=== PATIENT | male | born 1980 | race Two or more races ===

== ENCOUNTER 2024-12-17 10:00 | Inpatient (IN) | payer MEDICAID, SELFPAY ==
[2024-12-17] VITALS (15 sets, daily range): BP systolic 131–169; BP diastolic 75–107; PULSE 99–115; RESP 17–94; TEMP 36.8–37.2; O2SAT 91–99; BMI 33.8; BMI 40.7
--- NOTE | 2024-12-17 | XR_ITS ---
MRI abdomen, without contrast. MRCP Date and time of exam: December 17, 2024 7057 hours Indications: Elevated total bilirubin on laboratory examination today, ultrasound examination today, gallstones gallbladder wall thickening Technique: Multiple axial and coronal images of the abdomen have been obtained with the Siemens 1.5T MRI scanner. Images obtained included T1 weighted transverse images, T2-weighted transverse images, T2-weighted transverse images fat-suppressed, T2 weighted haste fat suppressed transverse images, T1 weighted images, in and out of phase images, T2-weighted coronal images, breath hold, T2 weighted haze coronal images as well as T2 weighted coronal thick slab images, MRCP. Findings: Liver is irregular in contour and enlarged Contracted gallbladder with gallstones and marked gallbladder wall edema No common hepatic or common bile duct stones Mild ascites Mild fluid around the pancreas which may relate to the patient's ascites Splenomegaly 19 cm No hydronephrosis Aorta normal size Impression: Cirrhosis Mild ascites Significant splenomegaly Acute calculus cholecystitis Common bile duct, gallstones
--- NOTE | 2024-12-17 10:43 | EKG_ITS ---
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1980 Requested By: Julio César Cardoza Order Number: [id number] Reading MD: Julio César Cardoza Measurements Intervals [place] Rate: 105 P: 63 MT: 185 QRS: -42 QRSD: 120 T: 71 QT: 355 QTc: 469 Interpretive Statements SINUS TACHYCARDIA WITH OCCASIONAL VENTRICULAR PREMATURE COMPLEXES LEFT AXIS DEVIATION [QRS AXIS < -30] LEFT VENTRICULAR HYPERTROPHY AND ST-T CHANGE [VOLTAGE CRITERIA PLUS ST/T ABNORMALITY] POSSIBLE LATERAL MYOCARDIAL INFARCTION , OF INDETERMINATE AGE [30 ms Q WAVE IN I/aVL/V5/V6] Compared to ECG 10/10/2021 21:47:10 Ventricular premature complex(es) now present ST (T wave) deviation now present Myocardial infarct finding now present /store/S0/[id number]/ecg/[id number].pdf
--- NOTE | 2024-12-17 10:44 | PD.EDRME ---
Rapid Medical Screening Exam RME Arrival date/time: 12/17/24 10:00 44-year-old male with no known medical history presents to the emergency room with a chief complaint of bilateral lower extremity swelling, multiple wounds to the area, x 1 week I have greeted and performed a focused initial assessment of this patient. A comprehensive ED assessment and evaluation of the patient, analysis of all test results, and completion of the medical decision making process will be conducted by additional ED providers. Chief Complaint: General Adult/Misc Complain Vital signs: Vital Signs Temperature 99.0 F 12/17/24 10:34 Pulse Rate 115 H 12/17/24 10:34 Respiratory Rate 20 12/17/24 10:34 Blood Pressure 143/86 H 12/17/24 10:34 Pulse Oximetry (%) 97 12/17/24 10:34 Oxygen Delivery Method Room Air 12/17/24 10:34 Vital signs reviewed by provider: Yes
[2024-12-17 11:23] LABS: Lactate (Lactic Acid) 2.5 mMol/L (0.4-2.0)
[2024-12-17 11:36] LABS: Collection Type, Urine Clean Catch
[2024-12-17 11:44] LABS: Basophils # (Auto) 0.1 Thou/mm3 (0.0-0.2); Basophils % (Auto) 1 % (0-2.5); Eosinophils % (Auto) 0 % (0-10); Hematocrit 34.9 % (41.0-53.0); Immature Granulocytes % (Auto) 1 % (0-0); Immature Granulocytes Auto 0.09 Thou/mm3 (0.00-0.00); Lymphocytes # (Auto) 0.7 Thou/mm3 (1.0-4.8); Lymphocytes % (Auto) 11 % (10-50); Mean Corpuscular HGB Conc 37.2 g/dl (31.0-37.0); Mean Corpuscular Volume 94 fL (80-100); Monocytes # (Auto) 0.7 Thou/mm3 (0.0-0.8); Monocytes % (Auto) 10 % (0-12); Neutrophils # (Auto) 5.2 Thou/mm3 (1.8-7.7); Neutrophils % (Auto) 76 % (37-80); Nucleated Red Blood Cell % 0 /100 WBC (0); Platelet Count 111 Thou/mm3 (140-440); RDW Standard Deviation 53.5 fL (35.1-43.9); Red Blood Count 3.71 Miln/mm3 (4.50-5.90); White Blood Count 6.8 Thou/mm3 (3.8-10.6)
[2024-12-17 11:51] LABS: Amphetamine/Methamp Scrn,U Negative (Negative); Barbiturate Screen,Urine Negative (Negative); Benzodiazepines Screen,Urine Negative (Negative); Benzoylecgonine Screen, Ur Negative (Negative); Fentanyl Screen,Urine Negative (Negative); Opiate Screen,Urine Negative (Negative); THC Screen,Urine Positive (Negative)
[2024-12-17 11:53] LABS: B-Type Natriuretic Peptide 24 pg/mL (0-100)
[2024-12-17 11:56] LABS: Bacteria,Urine Rare; Bilirubin,Urine 4+ (Negative); Blood,Urine Negative (Negative); Color,Urine Drk-Yellow (Lt Yel-Yel); Glucose, Urine Negative (Negative); Hyaline Casts,Urine < 1 /hpf (0-1); Ketones,Urine Negative (Negative); Leukocyte Esterase,Urine Negative (Negative); Nitrite,Urine Negative (Negative); Protein,Urine 1+ (Neg - Trace); RBC,Urine 5 /hpf (0-3); Specific Gravity,Urine 1.023 (1.001-1.035); Squamous Epithelial Cell,Urine 3 /hpf (0-5); WBC,Urine 27 /hpf (0-5)
[2024-12-17 12:05] LABS: Alanine Aminotransferase 86 U/L (10-49); Albumin, Serum 3.2 gm/dL (3.5-5.0); Albumin/Globulin Ratio 0.8 (1.2-2.2); Alkaline Phosphatase 160 U/L (46-116); Anion Gap 10 (7-16); Aspartate Amino Transferase 214 U/L (0-34); BUN/Creatinine Ratio 11 Ratio (12-20); Bilirubin,Total 12.4 mg/dL (0.3-1.2); Blood Urea Nitrogen 9 mg/dL (9-23); C-Reactive Protein 4.4 mg/dL (0.0-0.9); Calcium 7.7 mg/dL (8.3-10.6); Calcium (Corrected) 8.3 mg/dL (8.5-10.1); Carbon Dioxide 28.7 mMol/L (20.0-31.0); Chloride 95 mMol/L (98-107); Creatinine (Component) 0.8 mg/dL (0.6-1.3); Estimated Creatinine Clearance 146.2 mL/min (>60); Globulin 3.8 gm/dL (2.3-3.5); Glucose 117 mg/dL (74-106); Osmolality,Calculated 267 (275-295); Procalcitonin 0.28 ng/ml (0.0-0.49); Sodium 134 mMol/L (136-145); Troponin I 0.026 ng/mL (0.0-0.045); eGFR > 60 See Note
[2024-12-17 12:06] LABS: Potassium 2.4 mMol/L (3.4-5.1)
[2024-12-17 12:07] LABS: INR 1.2 (0.9-1.3); Partial Thromboplastin Time 29.3 Seconds (22.0-36.0); Prothrombin Time 12.8 Seconds (9.0-12.2)
[2024-12-17 12:31] LABS: Clarity,Urine Hazy (Clear/Hazy)
[2024-12-17 12:51] LABS: Sed Rate (ESR) 27 mm/hr (0-15)
--- NOTE | 2024-12-17 13:29 | XR_ITS ---
Examination: Abdomen sonogram, Limited Date and time of exam: December 17, 2024 at 1543 hrs. Indications: Elevated liver function tests on laboratory examination today Technique: Real-time albert scale transabdominal sonographic images of the upper abdomen obtained. Findings: Gallstones, gallbladder sludge Gallbladder wall 0.6 cm with edema Common bile duct 0.5 cm Pancreas obscured by bowel gas Liver 22.2 cm fatty infiltration lobular contour no focal liver lesions Normal hepatopedal portal venous flow Patent IVC Free fluid in the right upper abdomen Impression: Acute calculus cholecystitis Normal common bile duct stones Significant hepatomegaly primary hepatocellular disease fatty infiltration
--- NOTE | 2024-12-17 13:35 | PD.EDADULT ---
ED General RME/HPI General Chief complaint: General Adult/Misc Complain Stated complaint: BENITO LEG PAIN WITH OPEN WOUNDS Time Seen by Provider: 12/17/24 13:18 Arrival date/time: 12/17/24 10:00 RME / HPI RME / HPI narrative: 44-year-old male patient with significant history of hypertension, came in for evaluation regarding bilateral lower leg redness and multiple wounds. Onset of symptoms for the last 5 days as patient noticed redness and swelling bilateral lower extremity with blister formation. Patient leg is getting worst blisters pop and open wound noted. Patient denies any abdominal pain. Patient denies any yellowing of the sclera. Denies any other complaints no fever noted patient is ambulatory. Was seen by PCP and was referred here for further evaluation. Related Data Home Medications ?Medication ?Instructions ?Recorded ?Confirmed No Known Home Medications 10/10/21 10/10/21 Allergies Allergy/AdvReac Type Severity Reaction Status Date / Time No Known Allergies Allergy Verified 12/17/24 10:03 Review of Systems Review of Systems Narrative Review of Systems: Review of system reviewed and within normal limits except mentioned in HPI ED Exam Narrative Physical exam: VITAL SIGNS: Reviewed. GENERAL APPEARANCE: Alert and interactive, follows commands, no acute distress, HEAD AND FACE: Non-traumatic. ENT: PERRL, pink conjunctivitis, eyelid no trauma, Mucous membrane moist. Icteric sclera bilateral NECK: Supple, nontender, no nuchal rigidity. CHEST: No tenderness, no crepitus, no paradoxical movement, no retractions. LUNGS: Clear, well ventilated, symmetric, no rales, no wheezing, no ronchi, no stridor, good breath sounds bilaterally. HEART: Regular rate, regular rhythm, no murmur, no gallops. ABDOMEN: Soft, positive bowel sounds, nondistended, no guarding, nontender, no rebound, no masses, RECTAL: Deferred. GENITAL: Deferred. NEUROLOGICAL: Gross motor function intact sensory function intact, Appropriate for age. MUSCULOSKELETAL: low back nontender, full range of motion. EXTREMITIES: Bilateral lower leg redness, with multiple open wounds anterior leg, swelling, with tenderness full range of motion. SKIN: Color jaundice, dry, no lacerations, no abrasions, no contusions. LYMPHATICS: Deferred. Course Quality Measures none Orders Category Date Time Status Admit to Inpatient Status Routine Admission 12/17/24 20:35 Active Patient Condition Routine Admission 12/17/24 20:35 Ordered COVID-19 Screening Questionnaire NOW Care 12/17/24 19:42 Active Decision to Admit X1 Care 12/17/24 19:42 Completed EKG (ED ONLY) *Do not use* NOW Care 12/17/24 10:43 Completed MRI Screening NOW Care 12/17/24 13:34 Active Notify provider NEEDED Care 12/17/24 20:35 Active Consult to Gastroenterology Stat Cons 12/17/24 19:20 Ordered Consult to General Surgery Stat Cons 12/17/24 19:21 Ordered Diet Regular Diet 12/18/24 Breakfast Active EKG (ED Only) Stat Exams 12/17/24 10:43 Draft MR MRCP Stat Exams 12/17/24 Completed US gall bladder Stat Exams 12/17/24 13:29 Completed US venous doppler LE BI Stat Exams 12/17/24 13:38 Completed XR tibia fibula BI 2V Stat Exams 12/17/24 20:50 Completed B-Type Natriuretic Peptide Stat Lab 12/17/24 11:11 Completed Bilirubin,Direct Stat Lab 12/17/24 13:54 Completed Blood Culture (Lab) Stat Lab 12/17/24 11:11 Received CBC AM DRAW Lab 12/18/24 05:00 Ordered CBC AM DRAW Lab 12/19/24 05:00 Ordered CBC AM DRAW Lab 12/20/24 05:00 Ordered CBC Stat Lab 12/17/24 11:11 Completed CRP [C-Reactive Protein] Stat Lab 12/17/24 11:11 Completed Comprehensive Metabolic Panel AM DRAW Lab 12/18/24 05:00 Ordered Comprehensive Metabolic Panel AM DRAW Lab 12/19/24 05:00 Ordered Comprehensive Metabolic Panel AM DRAW Lab 12/20/24 05:00 Ordered Comprehensive Metabolic Panel Stat Lab 12/17/24 11:11 Completed Drug Screen,Urine Stat Lab 12/17/24 11:29 Completed ESR [Sed Rate (ESR)] Stat Lab 12/17/24 11:11 Completed Hepatitis Acute Panel AM DRAW Lab 12/18/24 05:00 Ordered Hepatitis Acute Panel Stat Lab 12/17/24 13:54 Completed Lactate (Lactic Acid) Stat Lab 12/17/24 11:11 Completed Lactic Acid, 3 HR Stat Lab 12/17/24 17:49 Completed Lipid Panel Urgent Lab 12/17/24 21:36 Completed Magnesium AM DRAW Lab 12/18/24 05:00 Ordered Magnesium AM DRAW Lab 12/19/24 05:00 Ordered Magnesium AM DRAW Lab 12/20/24 05:00 Ordered Magnesium Urgent Lab 12/17/24 21:36 Completed Partial Thromboplastin Time Stat Lab 12/17/24 11:11 Completed Phosphorous AM DRAW Lab 12/18/24 05:00 Ordered Phosphorous AM DRAW Lab 12/19/24 05:00 Ordered Phosphorous AM DRAW Lab 12/20/24 05:00 Ordered Procalcitonin Stat Lab 12/17/24 11:11 Completed Prothrombin Time with INR Stat Lab 12/17/24 11:11 Completed Troponin I Stat Lab 12/17/24 11:11 Completed Urinalysis Stat Lab 12/17/24 11:29 Completed Acetaminophen Tab [Tylenol Tab] Med 12/17/24 20:38 Active 650 mg PO Q6H PRN HYDROmorphone INJ [Dilaudid Inj] Med 12/17/24 14:57 Discontinued 1 mg IVP X1 ONE HYDROmorphone INJ [Dilaudid Inj] Med 12/17/24 19:12 Discontinued 1 mg IVP X1 ONE Heparin Inj Med 12/17/24 21:00 Active 5,000 unit SC Q12HR LORazepam [Ativan Inj] Med 12/17/24 14:08 Discontinued 2 mg IVP X1 ONE Ondansetron Inj [Zofran Inj] Med 12/17/24 20:38 Active 4 mg IV Q6H PRN Piper/Tazo 3.375 gm Premix [Zosyn] Med 12/17/24 22:00 Active 3.375 gm in 50 ml IV Q8HR Piper/Tazo 3.375 gm Premix [Zosyn] Med 12/17/24 13:33 Discontinued 3.375 gm in 50 ml IV X1 Piper/Tazo 3.375 gm Premix [Zosyn] 50 ml Med 12/17/24 20:48 Discontinued IV Q6HR Potassium Chloride [K-Dur] Med 12/17/24 13:32 Discontinued 40 meq PO X1 ONE Potassium Chloride [K-Dur] Med 12/17/24 15:26 Discontinued 40 meq PO X1 ONE Senna [Senokot] Med 12/17/24 20:38 Active 1 tab PO QDAY PRN Vancomycin Pharmacy to Dose Med 12/17/24 21:00 Discontinued 1 each IV QDAY Vancomycin Pharmacy to Dose Med 12/18/24 09:00 Active 1 each IV QDAY PRN Vancomycin/Ns 1 gm Ivpb 200 ml Med 12/17/24 13:33 Discontinued IV X1 Code Status Routine Oth 12/17/24 20:35 Ordered Oxygen Delivery PRN RT 12/17/24 20:35 Active Vital Signs Vital signs: Vital Signs Temperature 99.0 F 12/17/24 10:34 Pulse Rate 115 H 12/17/24 10:34 Respiratory Rate 20 12/17/24 10:34 Blood Pressure 143/86 H 12/17/24 10:34 Pulse Oximetry (%) 97 12/17/24 10:34 Oxygen Delivery Method Room Air 12/17/24 10:34 Discharge Plan Plan Patient Disposition: Admit Acute Care w/in Hospital Problem List Clinical Impression: Bilateral lower leg cellulitis, Transaminitis, Cirrhosis of liver, Acute calculous cholecystitis MDM Patient Acuity Narrative: 44-year-old male patient with significant history of hypertension, came in for evaluation regarding bilateral lower leg redness and multiple wounds. Onset of symptoms for the last 5 days as patient noticed redness and swelling bilateral lower extremity with blister formation. Patient leg is getting worst blisters pop and open wound noted. Patient denies any abdominal pain. Patient denies any yellowing of the sclera. Denies any other complaints no fever noted patient is ambulatory. Was seen by PCP and was referred here for further evaluation. CBC no leukocytosis noted. CMP significant for potassium 2.4 lactic acid 2.3, magnesium 1.1, total bili 12.4, direct bili of 7.5 AST of 214 ALT of 86 alkaline phos 160 C reactive protein 4.4 urinalysis no UTI tested positive for marijuana x-ray of the tibia-fibula came back unremarkable. Ultrasound came back unremarkable. MRCP showed acute calculus cholecystitis, no common bile duct stone noted Consulted Dr. Sigala, discussed the case, thank you Dr. Anaya consulted Dr. Monroe, GI specialist on-call discussed the case, thank you Spoke with hospitalist, Dr. Fair who admitted the patient. Medication Administration(s) Medication Administration History Acetaminophen (Acetaminophen 325 Mg Tablet) 650 mg PO Q6H PRN PRN Reason: Fever >100.3 or pain 1-3 Stop: 01/16/25 20:37 Heparin Sodium (Porcine) (Heparin Sod Inj 5000 Unit/Ml Vial) 5,000 unit SC Q12HR [facility] Stop: 12/31/24 20:59 Last Admin: 12/17/24 22:33 Dose: 5,000 unit Documented By: TIM Co-signed By: CHRISTIAN Piperacillin/Tazobactam/Dextrose (Zosyn) 3.375 gm in 50 mls @ 12.5 mls/hr IV Q8HR [facility] Stop: 12/24/24 21:59 Vancomycin HCl 2,000 mg/ (Sodium Chloride) 500 mls @ 150 mls/hr IV Q12H [facility] Stop: 12/24/24 21:59 Lisinopril (Lisinopril 20 Mg Tablet) 20 mg PO QDAY [facility] Stop: 01/17/25 08:59 Lorazepam (Lorazepam 0.5 Mg Tablet) 0.5 mg PO Q4HR PRN PRN Reason: CIWA Score 2-6 Stop: 12/22/24 23:01 Lorazepam (Lorazepam 0.5 Mg Tablet) 1 mg PO Q4HR PRN PRN Reason: CIWA SCORE 7-11 Stop: 12/22/24 23:01 Lorazepam (Lorazepam 0.5 Mg Tablet) 2 mg PO Q4HR PRN PRN Reason: CIWA SCORE 12-15 Stop: 12/22/24 23:01 Ondansetron HCl (Ondansetron Inj 2 Mg/Ml Inj 2 Ml) 4 mg IV Q6H PRN; Protocol PRN Reason: NAUSEA OR VOMITING Stop: 01/16/25 20:37 Pharmacy Consult (Vancomycin Pharmacy To Dose 1 Each Each) 1 each IV QDAY PRN PRN Reason: PROTOCOL Stop: 01/17/25 08:59 Sennosides (Senna Tablet) 1 tab PO QDAY PRN; Protocol PRN Reason: constipation Stop: 01/16/25 20:37 Discontinued Medications Hydromorphone HCl (Hydromorphone Inj 2 Mg/Ml Vial) 1 mg IVP X1 ONE Stop: 12/17/24 14:58 Last Admin: 12/17/24 15:10 Dose: 1 mg Documented By: DAMARIS Hydromorphone HCl (Hydromorphone Inj 2 Mg/Ml Vial) 1 mg IVP X1 ONE Stop: 12/17/24 19:13 Last Admin: 12/17/24 19:26 Dose: 1 mg Documented By: DAMARIS Piperacillin/Tazobactam/Dextrose (Zosyn) 3.375 gm in 50 mls @ 100 mls/hr IV X1 ONE Stop: 12/17/24 14:02 Last Infusion: 12/17/24 15:25 Dose: Infused Documented By: Admin: 12/17/24 14:49 Dose: 100 mls/hr Documented By: DAMARIS Vancomycin/Sodium Chloride (Vancomycin/Ns 1 Gm Ivpb) 200 mls @ 120 mls/hr IV X1 ONE Stop: 12/17/24 15:12 Last Infusion: 12/17/24 19:27 Dose: Infused Documented By: Admin: 12/17/24 16:28 Dose: 120 mls/hr Documented By: DAMARIS Piperacillin/Tazobactam/Dextrose (Zosyn) 50 mls @ 100 mls/hr IV Q6HR [facility] Stop: 12/24/24 20:47 Lorazepam (Lorazepam 2 Mg/Ml Vial) 2 mg IVP X1 ONE Stop: 12/17/24 14:09 Last Admin: 12/17/24 14:54 Dose: Not Given Documented By: DAMARIS Non-Admin Reason: Cancelled by Provider Pharmacy Consult (Vancomycin Pharmacy To Dose 1 Each Each) 1 each IV QDAY [facility] Stop: 01/16/25 20:59 Potassium Chloride (Potassium Chloride 20 Meq Tabcr) 40 meq PO X1 ONE Stop: 12/17/24 13:33 Last Admin: 12/17/24 14:48 Dose: 40 meq Documented By: DAMARIS Potassium Chloride (Potassium Chloride 20 Meq Tabcr) 40 meq PO X1 ONE Stop: 12/17/24 15:27 Last Admin: 12/17/24 18:54 Dose: 40 meq Documented By: DAMARIS Diagnosis Differential Diagnosis ED Complaint MDM: Bilateral lower leg cellulitis, infected bilateral lower leg, liver cirrhos Diagnoses ruled out: Lower leg cellulitis, acute calculus cholecystitis, liver cirrhosis
--- NOTE | 2024-12-17 13:38 | XR_ITS ---
Examination: Venous duplex lower extremity sonogram, bilateral. Date and time of exam: December 17, 2024 1509 hrs. Indications: Bilateral leg swelling redness nonhealing wound 5 days Technique: Multiple sonographic images of the deep venous system have been obtained. B-mode/2-D grayscale imaging of vascular structures and Doppler spectral analysis (waveforms) and color performed Both legs are examined. Findings: Deep venous systems do not demonstrate abnormal echogenicity. All visualized deep veins exhibit compressibility. All visualized deep veins exhibit augmentation. Impression: Negative for deep vein thrombosis
--- NOTE | 2024-12-17 14:06 | PC.NURSE ---
Received verbal order from provider for 2mg Ativan IV for MRI
[2024-12-17 14:16] LABS: Reflex Lactate? Y
[2024-12-17 14:29] LABS: Bilirubin,Direct 7.5 mg/dL (0.0-0.3)
[2024-12-17] MEDS: POTASSIUM CHLORIDE 20 mEq TABCR 40 MEQ PO ×2 (14:48→18:54)
[2024-12-17] MEDS: PIPER/TAZO 3.375 GM PREMIX 3.375 GM/50 ML BAG IV ×2 (14:49→23:53)
[2024-12-17 15:08] LABS: Hepatitis A Antibody IgM Non Reactive (Non React); Hepatitis B Core Antibody IgM Non Reactive (Non React); Hepatitis B Surface Antigen Non Reactive (Non React); Hepatitis C Antibody Non Reactive (Non React)
[2024-12-17] MEDS: HYDROmorphone INJ 2 MG/ML VIAL 1 MG IVP ×2 (15:10→19:26)
[2024-12-17] MEDS: VANCOMYCIN/NS 1 GM IVPB 200 ML IV (16:28)
[2024-12-17 18:07] LABS: Lactic Acid, 3 HR 2.3 mMol/L (0.4-2.0)
--- NOTE | 2024-12-17 20:50 | XR_ITS ---
Examination: Bilateral lower legs 4 views Technique: AP lateral right and left lower legs 4 views Exam date and time: December 17, [id number] hrs. Indications: Soft tissue pain infection swelling both lower legs this week. Findings: Soft tissue vascular calcification posterior right lower leg No fracture or dislocation involving either lower leg No cortical bone destruction Impression: No fracture or cortical bone destruction involving Bilateral bimalleolar soft tissue swelling
--- NOTE | 2024-12-17 21:36 | ESHP_ITS ---
Documentation for date of: 12/17/24 HPI History of Present Illness History of present illness: The patient is a 56-year-old male with a previous medical history of hypertension who came in to the ED on 12/13/2024 due to bilateral lower extremities swelling, erythema, lesions, ruptured bullae that started on Saturday. He denies trauma, he denies new medications, he denies applying lotions on his skin. Of note, his life partner is at the bedside and she has similar healing lesions on her lower extremities. He also reports that he went to his wound care doctor and got an antibiotic prescribed, and he had sample taken for MRSA. He has not started his antibiotics yet. He denies fever, chills, chest pain, shortness of breath, nausea, vomiting. He reports that he has been having diarrhea since Saturday, denies blood in his stool. But his life partner reports that he has been having shortness of breath. He also reports that people has been telling him that he his skin and sclera looks yellowish. He denies history of liver disease. ED course: Blood pressure for 143/86, pulse 115, afebrile, saturating well on room air. Labs remarkable for hemoglobin 13.0, hematocrit 34.9, platelets 111, INR 1.2, sodium 134, potassium 2.4, chloride 95, carbon dioxide 28.7, BUN 9, creatinine 0.8, glucose 117, lactic acid 2.5 down trended to 2.3, calcium corrected 8.3, total bilirubin 12.4, direct bilirubin 7.5, AST 214, ALT 86, alkaline phosphatase 160, C-reactive protein 4.4, albumin 3.2, procalcitonin 0.28. Gallbladder ultrasound showed acute calculus cholecystitis, hepatomegaly and fatty infiltration of the liver. MRCP showed cirrhosis, mild ascites, significant splenomegaly and acute calculus cholecystitis. Impression section in the report writes common bile duct, gallstones , but section findings describes no common hepatic or common bile duct stones. According to the ED provider, he contacted radiologist and he confirmed that there is no common hepatic and common bile duct stones. Venous Doppler of the lower extremities was negative for DVT. Tibia and fibula x-ray showed bilateral bimalleolar soft tissue swelling, no cortical bone destruction. EKG showed sinus tachycardia with occasional PVCs. Social history: Denies smoking, reports alcohol use 3?4 times a week, approximately drinks 1?2 beers a day. Denies recreational substances. Has multiple tattoos, says that not every tattoo done at the [facility]. In the ED he received 80 mEq of potassium, Zosyn 3.375 x 1, lorazepam 2 mg x 1, hydromorphone 1 mg x 2, vancomycin x 1. Home medications: Reports taking blood pressure medications, official med rec is pending. Allergies: Denies Surgeries: Denies Patient is going to be admitted for bilateral cellulitis and liver cirrhosis treatment and management. Review of Systems Review of Systems Systems Reviewed: All systems reviewed, normal except as documented Past Medical History Past Medical History CARDIAC: Positive Cardiac Disorders and Hypertension; Negative Congestive Heart Failure RESPIRATORY: Negative Chronic Obstructive Pulmonary Disease (COPD) GASTROINTESTINAL: Positive Obesity GENITOURINARY: Negative Renal Disease ENDOCRINE: Negative Diabetes Mellitus Type 1 or Diabetes Mellitus Type 2 Social History SMOKING STATUS: Never smoker SUBSTANCE USE: former substance user (marijuana when younger) Exam Vital Signs Temp Pulse Resp BP Pulse Ox O2 Del Method 98.5 F 108 H 18 162/100 H 95 Room Air 12/17/24 18:57 12/17/24 21:31 12/17/24 21:31 12/17/24 18:57 12/17/24 18:57 12/17/24 18:57 Narrative Exam Physical Exam General: Awake and in no acute distress obese male. Irritative, does not want to discuss cirrhosis. HEENT: Normocephalic, atraumatic, mucous membranes moist. Mildly icteric sclerae. Heart: Regular rate and rhythm, no murmurs. Lungs: Decreased lung sounds due to habitus. Abdomen: Soft, nondistended, nontender, positive bowel sounds. ?No guarding or rebound tenderness. Neurologic: Alert, no gross neurological deficit, and patient able to move all 4 extremities. Extremities: Bilateral tibial swelling and edema, tender to palpation. Bilateral tibial bursted bullae with scabs on top. Skin: Bilateral tibial bursted bullae with scabs on top. Results: Labs 12/17/24 11:11 12/17/24 11:11 Labs: Short CBC 12/17/24 Range/Units 11:11 WBC 6.8 (3.8-10.6) Thou/mm3 Hgb 13.0 L (13.5-16.0) g/dL Hct 34.9 L (41.0-53.0) % Plt Count 111 L (140-440) Thou/mm3 BMP 12/17/24 11:11 Sodium 134 L Potassium 2.4 L* Chloride 95 L Carbon Dioxide 28.7 BUN 9 Creatinine 0.8 Glucose 117 H Calcium 7.7 L Cardiac Enzymes 12/17/24 Range/Units 11:11 Troponin I 0.026 (0.0-0.045) ng/mL Liver Function 12/17/24 12/17/24 Range/Units 11:11 13:54 Total Bilirubin 12.4 H (0.3-1.2) mg/dL Direct Bilirubin 7.5 H (0.0-0.3) mg/dL AST 214 H (0-34) U/L ALT 86 H (10-49) U/L Alkaline Phosphatase 160 H (46-116) U/L Albumin 3.2 L (3.5-5.0) gm/dL Urine 12/17/24 Range/Units 11:29 Urine Color Drk-Yellow A (Lt Yel-Yel) Urine Clarity Hazy (Clear/Hazy) Urine pH 6.0 (5.0-7.0) Ur Specific [place] 1.023 (1.001-1.035) Urine Protein 1+ A (Neg - Trace) Urine Glucose (UA) Negative (Negative) Quality Measures Quality Measures VTE prophylaxis Medications Home Medications and Allergies Home Medications ?Medication ?Instructions ?Recorded ?Confirmed ?Type No Known Home Medications 10/10/2109/26 History Allergies Allergy/AdvReac Type Severity Reaction Status Date / Time No Known Allergies Allergy Verified 12/17/24 10:03 Visit Medications Acetaminophen (Acetaminophen 325 Mg Tablet) 650 mg PO Q6H PRN PRN Reason: Fever >100.3 or pain 1-3 Stop: 01/16/25 20:37 Heparin Sodium (Porcine) (Heparin Sod Inj 5000 Unit/Ml Vial) 5,000 unit SC Q12HR BOYD Stop: 12/31/24 20:59 Piperacillin/Tazobactam/Dextrose (Zosyn) 3.375 gm in 50 mls @ 12.5 mls/hr IV Q8HR BOYD Stop: 12/24/24 21:59 Vancomycin HCl 2,000 mg/ (Sodium Chloride) 500 mls @ 150 mls/hr IV Q12H BOYD Stop: 12/24/24 21:59 Ondansetron HCl (Ondansetron Inj 2 Mg/Ml Inj 2 Ml) 4 mg IV Q6H PRN; Protocol PRN Reason: NAUSEA OR VOMITING Stop: 01/16/25 20:37 Pharmacy Consult (Vancomycin Pharmacy To Dose 1 Each Each) 1 each IV QDAY PRN PRN Reason: PROTOCOL Stop: 01/17/25 08:59 Sennosides (Senna Tablet) 1 tab PO QDAY PRN; Protocol PRN Reason: constipation Stop: 01/16/25 20:37 Discontinued Medications Hydromorphone HCl (Hydromorphone Inj 2 Mg/Ml Vial) 1 mg IVP X1 ONE Stop: 12/17/24 14:58 Last Admin: 12/17/24 15:10 Dose: 1 mg Hydromorphone HCl (Hydromorphone Inj 2 Mg/Ml Vial) 1 mg IVP X1 ONE Stop: 12/17/24 19:13 Last Admin: 12/17/24 19:26 Dose: 1 mg Piperacillin/Tazobactam/Dextrose (Zosyn) 3.375 gm in 50 mls @ 100 mls/hr IV X1 ONE Stop: 12/17/24 14:02 Last Infusion: 12/17/24 15:25 Dose: Infused Vancomycin/Sodium Chloride (Vancomycin/Ns 1 Gm Ivpb) 200 mls @ 120 mls/hr IV X1 ONE Stop: 12/17/24 15:12 Last Infusion: 12/17/24 19:27 Dose: Infused Piperacillin/Tazobactam/Dextrose (Zosyn) 50 mls @ 100 mls/hr IV Q6HR [facility] Stop: 12/24/24 20:47 Lorazepam (Lorazepam 2 Mg/Ml Vial) 2 mg IVP X1 ONE Stop: 12/17/24 14:09 Last Admin: 12/17/24 14:54 Dose: Not Given Pharmacy Consult (Vancomycin Pharmacy To Dose 1 Each Each) 1 each IV QDAY BOYD Stop: 01/16/25 20:59 Potassium Chloride (Potassium Chloride 20 Meq Tabcr) 40 meq PO X1 ONE Stop: 12/17/24 13:33 Last Admin: 12/17/24 14:48 Dose: 40 meq Potassium Chloride (Potassium Chloride 20 Meq Tabcr) 40 meq PO X1 ONE Stop: 12/17/24 15:27 Last Admin: 12/17/24 18:54 Dose: 40 meq Assessment & Plan Plan The patient is a 56-year-old male with a previous medical history of hypertension who came in to the ED on 12/13/2024 due to bilateral lower extremities swelling, erythema, lesions, ruptured bullae that started on Saturday. Patient is going to be admitted for bilateral cellulitis and liver cirrhosis treatment and management. #Bilateral cellulitis Patient started to have bullous eruption on Saturday, reports the bruise has burst. Extremities bilaterally edematous, erythematous, hot to the touch. SIRS 1/4. qSOFA 0. Plan: - Vancomycin renally dosed qday - Zosyn 3.375 mg qday - Wound care - MRSA screen - follow-up blood cultures #Liver cirrhosis #Elevated transaminases Patient denies history of cirrhosis previously. Most likely cirrhosis in the setting of LI. Patient denies abdominal pain, nausea, vomiting. GI specialist is consulted. Plan: - Monitor daily CMP ? Hepatitis panel negative ? Avoid hepatotoxic medications - GI specialists Dr. Monroe consulted ,appreciate recommendations #Acute calculus cholecystitis #Hyperbilirubinemia Patient denies history of gallstones before. Imaging was positive for acute cholecystitis. General surgery is consulted. Patient denies nausea, vomiting, abdominal pain. Plan: ? General Surgery consulted #Hypertension Plan: - resumed home lisinopril #History of alcohol use Patient reports frequent alcohol use 3-4 times a week. Per Dr. Monroe's note patient reports daily alcohol use. Plan: - CIWA protocol Health maintenance: FEN: cardiac DVT prophylaxis: heparic sc GI prophylaxis: none Dispo: medsurg CODE STATUS: Full code Plan of care discussed with attending Dr. Boles. Nayeli Persaud MD, PGY 1. Attending Provider Attestation/Addendum I attest that I was physically present for the evaluation, physical examination, lab and imaging review of the patient with the residents. I discussed the case with the residents and agree with the findings and plans of care as documented above. Patient is a 56 years old male with past medical history of hypertension who presents to the ED with complaint of bilateral lower extremity swelling, ruptured lesions and pain. In the ED, he was found tachycardic. Lab results show hemoglobin of 13, potassium 2.4, chloride 95, CO2 28.7, lactic acid 2.5, bilirubin 12.4 with direct bilirubin 7.5, AST 214, ALT 86, ALP 160. Gallbladder ultrasound was obtained, which shows a calculus cholecystitis, hepatomegaly and fatty infiltration of liver. MRCP was done, which showed cirrhosis, mild ascites, splenomegaly and calculus cholecystitis. Venous Doppler of lower limb was negative for DVT. Tibial and fibula x-ray did not show any air inside the soft tissue. We will admit the patient for management of bilateral cellulitis, we will start him on vancomycin and Zosyn, wound care. We will obtain culture results. Gastroenterology has been contacted by ED, appreciate recommendations, we will obtain hepatitis panel and monitor his liver function closely. We will also obtain general surgery consult for calculus cholecystitis. Patient also drinks beer, was not very clear if he drinks regularly, we will start him on CIWA protocol and monitor for withdrawal symptoms closely. Maurice Boles MD
--- NOTE | 2024-12-17 21:55 | PD.IMCONS ---
HPI Data of Consult Requesting Physician: Maurice Boles MD Primary Care Provider: Joan Fisher PA-C Consult Narrative Reason for consult: abnormal liver function tests History of present illness: 44 years old male evaluated at request of the ER [employer] As patient presented with lower extremity cellulitis and blister formation sent to the ER by the PCP He also complained of icteric sclera and was found to have a total bilirubin of 12.4 with a direct bili of 7.5 AST ALT to 1486 and alk phos of 160 Patient does take about 2-3 beers a day Liver ultrasound showed gallstones sludge liver showing fatty liver as well as hepatomegaly 22.2 cm and a spleen of about 19 cm An MRCP shows no stones in the common hepatic duct or the common bile duct cc:: cc: Maurice Boles MD Review of Systems Review of Systems Systems Reviewed: All systems reviewed, normal except as documented Past Medical History Surgical History OTHER SURGICAL HX: Essential hypertension Meds Home Medications and Allergies Home Medications ?Medication ?Instructions ?Recorded ?Confirmed ?Type No Known Home Medications 10/10/21 10/10/21 History Allergies Allergy/AdvReac Type Severity Reaction Status Date / Time No Known Allergies Allergy Verified 12/17/24 10:03 Exam Vital Signs Temp Pulse Resp BP Pulse Ox O2 Del Method 98.5 F 108 H 18 162/100 H 95 Room Air 12/17/24 18:57 12/17/24 21:31 12/17/24 21:31 12/17/24 18:57 12/17/24 18:57 12/17/24 18:57 Constitutional Comments: Chronically ill-appearing Routine Respiratory Exam Comments: Normal to auscultation Routine Abdominal Exam Comments: Soft nontender Results Labs 12/18/24 05:43 12/18/24 10:50 Labs: Short CBC 12/17/24 Range/Units 11:11 WBC 6.8 (3.8-10.6) Thou/mm3 Hgb 13.0 L (13.5-16.0) g/dL Hct 34.9 L (41.0-53.0) % Plt Count 111 L (140-440) Thou/mm3 BMP 12/17/24 11:11 Sodium 134 L Potassium 2.4 L* Chloride 95 L Carbon Dioxide 28.7 BUN 9 Creatinine 0.8 Glucose 117 H Calcium 7.7 L Cardiac Enzymes 12/17/24 Range/Units 11:11 Troponin I 0.026 (0.0-0.045) ng/mL Liver Function 12/17/24 12/17/24 Range/Units 11:11 13:54 Total Bilirubin 12.4 H (0.3-1.2) mg/dL Direct Bilirubin 7.5 H (0.0-0.3) mg/dL AST 214 H (0-34) U/L ALT 86 H (10-49) U/L Alkaline Phosphatase 160 H (46-116) U/L Albumin 3.2 L (3.5-5.0) gm/dL Urine 12/17/24 Range/Units 11:29 Urine Color Drk-Yellow A (Lt Yel-Yel) Urine Clarity Hazy (Clear/Hazy) Urine pH 6.0 (5.0-7.0) Ur Specific [place] 1.023 (1.001-1.035) Urine Protein 1+ A (Neg - Trace) Urine Glucose (UA) Negative (Negative) Assessment and Plan Additional Assessment & Plan Additional Plan: # Abnormal liver functions is most likely due to chronic liver disease caused by moderate consumption of alcohol leading to hepatosplenomegaly and fatty infiltration of the liver along with portal hypertension and ascites However other causes of chronic active hepatitis should be ruled out And I have ordered a complete workup Other medical problems include Cellulitis lower extremities patient already on Zosyn and vancomycin Cholelithiasis with possibility of cholecystitis Thank you very much for the opportunity to participate in care of this patient
[2024-12-17 22:06] LABS: Cholesterol 92 mg/dL (132-200); HDL Cholesterol < 5 mg/dL (40-60); LDL Cholesterol,Calculated 58 mg/dL (0-130); Magnesium 1.1 mg/dL (1.6-2.6); Triglycerides 143 mg/dL (30-150)
[2024-12-17] MEDS: HEPARIN SOD INJ 5000 UNIT/ML VIAL SC (22:33)
--- NOTE | 2024-12-17 22:40 | PC.NURSE ---
Reprort fletcherroe [facility] RN
[2024-12-17 22:45] LABS: Iron 71 mcg/dL (65-175); Percent Iron Saturation 39 % (20-55); Total Iron Binding Capacity 178 mcg/dL (250-425); Unsaturated Iron Binding 107 (225-295)
[2024-12-17] MEDS: Vancomycin Inj 2,000 MG in SODIUM CHLORIDE 0.9% 500 ML 500 ML 150 MG IV (23:44)
[2024-12-18] VITALS (11 sets, daily range): BP systolic 94–144; BP diastolic 73–93; PULSE 90–118; RESP 16–97; TEMP 36.3–37.3; O2SAT 95–98; BMI 40.8
[2024-12-18] MEDS: HYDROcodone/APAP 5/325 TABLET 1 TAB PO ×3 (02:36→20:30)
[2024-12-18 02:56] LABS: Hepatitis A Antibody IgM Non Reactive (Non React); Hepatitis B Core Antibody IgM Non Reactive (Non React); Hepatitis B Surface Antigen Non Reactive (Non React); Hepatitis C Antibody Non Reactive (Non React)
[2024-12-18] MEDS: PIPER/TAZO 3.375 GM PREMIX 3.375 GM/50 ML BAG IV ×3 (05:19→21:27)
[2024-12-18 06:19] LABS: Basophils % (Auto) 1 % (0-2.5); Eosinophils % (Auto) 1 % (0-10); Hemoglobin 12.2 g/dL (13.5-16.0); Immature Granulocytes % (Auto) 1 % (0-0); Immature Granulocytes Auto 0.03 Thou/mm3 (0.00-0.00); Lymphocytes # (Auto) 0.4 Thou/mm3 (1.0-4.8); Lymphocytes % (Auto) 9 % (10-50); Mean Corpuscular HGB Conc 38.1 g/dl (31.0-37.0); Mean Corpuscular Hemoglobin 35.5 pg (25.0-35.0); Mean Corpuscular Volume 93 fL (80-100); Monocytes # (Auto) 0.4 Thou/mm3 (0.0-0.8); Monocytes % (Auto) 8 % (0-12); Neutrophils # (Auto) 3.8 Thou/mm3 (1.8-7.7); Neutrophils % (Auto) 81 % (37-80); Nucleated Red Blood Cell % 0 /100 WBC (0); Platelet Count 74 Thou/mm3 (140-440); RDW Standard Deviation 54.5 fL (35.1-43.9); Red Blood Count 3.44 Miln/mm3 (4.50-5.90); White Blood Count 4.7 Thou/mm3 (3.8-10.6)
[2024-12-18 06:20] LABS: Slide Review Platelets confirmed
[2024-12-18 06:51] LABS: Alanine Aminotransferase 75 U/L (10-49); Albumin/Globulin Ratio 0.9 (1.2-2.2); Alkaline Phosphatase 140 U/L (46-116); Anion Gap 9 (7-16); Aspartate Amino Transferase 184 U/L (0-34); BUN/Creatinine Ratio 10 Ratio (12-20); Bilirubin,Total 16.6 mg/dL (0.3-1.2); Blood Urea Nitrogen 7 mg/dL (9-23); Calcium 7.6 mg/dL (8.3-10.6); Calcium (Corrected) 8.4 mg/dL (8.5-10.1); Carbon Dioxide 27.8 mMol/L (20.0-31.0); Chloride 101 mMol/L (98-107); Creatinine (Component) 0.7 mg/dL (0.6-1.3); Estimated Creatinine Clearance 167.1 mL/min (>60); Globulin 3.5 gm/dL (2.3-3.5); Glucose 88 mg/dL (74-106); Magnesium 1.2 mg/dL (1.6-2.6); Osmolality,Calculated 272 (275-295); Phosphorous 2.5 mg/dL (2.4-5.1); Sodium 138 mMol/L (136-145); Total Protein 6.5 gm/dL (5.7-8.2); eGFR > 60 See Note
[2024-12-18 06:57] LABS: Potassium 2.6 mMol/L (3.4-5.1)
--- NOTE | 2024-12-18 07:04 | PC.NURSE ---
Dr. Persaud made aware of critical potassium of 2.6. Dr. Persaud will put an order for potassium replacement.
[2024-12-18 07:07] LABS: Hepatitis A Antibody IgM Non Reactive (Non React); Hepatitis B Core Antibody IgM Non Reactive (Non React); Hepatitis B Surface Antigen Non Reactive (Non React); Hepatitis C Antibody Non Reactive (Non React)
[2024-12-18] MEDS: POTASSIUM CHLORIDE 20 mEq TABCR 40 MEQ PO ×2 (07:49→15:27)
[2024-12-18] MEDS: POTASSIUM CHL 10 mEq IVPB 10 MEQ/100 ML BAG 100 MEQ IV ×4 (07:49→11:08)
[2024-12-18] MEDS: Lisinopril 20 MG TABLET PO (08:02)
[2024-12-18] MEDS: HEPARIN SOD INJ 5000 UNIT/ML VIAL SC ×2 (08:02→20:30)
[2024-12-18] MEDS: Magnesium Sulfate 4 GM Ivpb 4 GM/50 ML BAG IV (09:18)
[2024-12-18] MEDS: Vancomycin Inj 2,000 MG in SODIUM CHLORIDE 0.9% 500 ML 500 ML 150 MG IV ×2 (09:18→23:02)
--- NOTE | 2024-12-18 11:12 | PC.SS ---
Patient Alexandre Williamson is a 44 Year old male admitted for Billateral Cellulitis. SS met with patient at bedside to discuss discharge plan and to review demographic information. Patient reports he lives at home with family. Patient identifies his , Glenny Escalera as surrogate decision maker [phone]. Choice of pharmacy is [facility]. Patient's PCP is Joan Fisher. Patient reports he does not utilize any source of DME. Patient is able to ambulate without assistance. At time of discharge patient will return back home. next of kin: , Glenny Escalera Discharge plan: Home
[2024-12-18 11:24] LABS: Glucose Estimated Average 88 mg/dL (80-131); Hemoglobin A1C 4.7 % Hgb (4.8-6.0)
--- NOTE | 2024-12-18 11:37 | PD.SURCONS ---
HPI Consult details Consult date: 12/18/24 Reason for consultation narrative: Cholecystitis History of present illness: 44-year-old male with history of alcoholic liver cirrhosis with ascites presented to the emergency department with bilateral lower extremity cellulitis and pain. He was noted to have elevation of liver enzymes, ultrasound was obtained that revealed multiple gallstones with gallbladder wall thickening and ascites. MRCP was also obtained that revealed similar findings. Patient has been eating and tolerating diet well without history of postprandial abdominal pain with nausea or vomiting. Meds Home Medications and Allergies Home Medications ?Medication ?Instructions ?Recorded ?Confirmed ?Type No Known Home Medications 10/10/21 10/10/21 History Allergies Allergy/AdvReac Type Severity Reaction Status Date / Time No Known Allergies Allergy Verified 12/17/24 10:03 Exam Vital Signs Temp Pulse Resp BP Pulse Ox O2 Del Method 97.5 F 115 H 20 132/80 H 95 Room Air 12/18/24 07:59 12/18/24 08:47 12/18/24 08:47 12/18/24 08:02 12/18/24 07:59 12/18/24 07:59 Constitutional Constitutional: no acute distress Routine HEENT Exam Eye: Present conjunctival icterus Routine Abdominal Exam Abdominal: Present soft and normoactive bowel sounds; Absent tenderness or distended Assessment & Plan Additional Assessment Additional comments: He has asymptomatic cholelithiasis. Elevation of liver enzymes is due to intrinsic liver disease. Gallbladder wall thickening and edema around the gallbladder cannot be accurately assessed in the presence of ascites Plan No indications for surgical intervention as patient has asymptomatic cholelithiasis. He has liver cirrhosis, thrombocytopenia and portal hypertension which make him not a candidate for surgical intervention.
[2024-12-18 14:31] LABS: Anion Gap 10 (7-16); BUN/Creatinine Ratio 12 Ratio (12-20); Blood Urea Nitrogen 7 mg/dL (9-23); Calcium 7.3 mg/dL (8.3-10.6); Calcium (Corrected) 8.1 mg/dL (8.5-10.1); Carbon Dioxide 27.5 mMol/L (20.0-31.0); Chloride 102 mMol/L (98-107); Creatinine (Component) 0.6 mg/dL (0.6-1.3); Estimated Creatinine Clearance 191.9 mL/min (>60); Glucose 85 mg/dL (74-106); Osmolality,Calculated 274 (275-295); Phosphorous 1.8 mg/dL (2.4-5.1); Potassium 2.8 mMol/L (3.4-5.1); Sodium 139 mMol/L (136-145); Vancomycin,Trough 23.2 mcg/mL (5.0-10.0); eGFR > 60 See Note
--- NOTE | 2024-12-18 17:50 | ESPR_ITS ---
<Statement entered by Yunior Ordoñez MD - 12/23/24 09:32> I reviewed above note and agree with findings and plans. I have also personally examined the patient with medicine team and went over assessment and plan with medical team including pr intern and resident physician. <Statement entered by Max Earl MD - 12/20/24 10:10> Patient seen and assessed at bedside. Patient admitted overnight for lower extremity cellulitis. Patient on broad-spectrum antibiotics. Pending cultures. Case discussed with team. Max Earl MD PGY3 Documentation for date of: 12/18/24 Subjective Subjective Interval history: Pt is an overnight admit. Pt is seen and examined at bedside this morning. Pt states his who is a diabetic has similar lesions and she was going to wound care for it and at home he would often help her clean her wounds and wrap them. pt first noticed the bullous on Saturday and wound care clinic cleaned them but however they have gotten worse. Pt also admits to heavy alcohol use. however now that he found out about his liver cirrhosis he wants to completely quit drinking. vitals are stable and labs are reviews and electrolytes are repleted. Exam Vital Signs Temp Pulse Resp BP Pulse Ox O2 Del Method 97.8 F 118 H 18 144/93 H 95 Room Air 12/18/24 16:00 12/18/24 16:55 12/18/24 16:55 12/18/24 16:00 12/18/24 16:00 12/18/24 16:00 Narrative Exam Physical Exam General: Awake and in no acute distress obese male. HEENT: Normocephalic, atraumatic, mucous membranes moist. Mildly icteric sclerae. Heart: Regular rate and rhythm, no murmurs. Lungs: Decreased lung sounds due to habitus. Abdomen: Soft, nondistended, nontender, positive bowel sounds. ?No guarding or rebound tenderness. Neurologic: Alert, no gross neurological deficit, and patient able to move all 4 extremities. Extremities: Bilateral tibial swelling and edema, tender to palpation. Bilateral tibial bursted bullae with scabs on top. Skin: Bilateral tibial bursted bullae with scabs on top. Objective Labs 12/18/24 05:43 12/18/24 10:50 Labs: Laboratory Results - last 24 hr 0412/17/24 12/18/24 17:49 21:36 05:43 WBC 4.7 RBC 3.44 L Hgb 12.2 L Hct 32.0 L MCV 93 MCH 35.5 H MCHC 38.1 H RDW Std Deviation 54.5 H Plt Count 74 L D Neut % (Auto) 81 H Lymph % (Auto) 9 L [place] % (Auto) 8 Eos % (Auto) 1 Baso % (Auto) 1 Neut # (Auto) 3.8 Lymph # (Auto) 0.4 L [place] # (Auto) 0.4 Eos # (Auto) 0.0 Baso # (Auto) 0.0 Immature Gran # (Auto) 0.03 H Absolute Nucleated RBC 0.00 Immature Gran % 1 H Nucleated RBC % 0 Sodium 138 Potassium 2.6 L* Chloride 101 Carbon Dioxide 27.8 Anion Gap 9 BUN 7 L Creatinine 0.7 Estim Creat Clear Calc 167.1 eGFR > 60 BUN/Creatinine Ratio 10 L Glucose [address] Glu mg/dL 88 Hemoglobin A1c 4.7 L Calculated Osmolality 272 L Lactic Acid 2.3 H Calcium 7.6 L Corrected Calcium 8.4 L Phosphorus 2.5 Magnesium 1.1 L 1.2 L Iron 71 TIBC 178 L Iron Saturation 39 Unsat Iron Binding 107 L Total Bilirubin 16.6 H D AST 184 H ALT 75 H Alkaline Phosphatase 140 H D Total Protein 6.5 Albumin 3.0 L Globulin 3.5 Albumin/Globulin Ratio 0.9 L Triglycerides 143 Cholesterol 92 L LDL Cholesterol, Calc 58 HDL Cholesterol < 5 L Cholesterol/HDL Ratio 18.0 H Tumor Marker AFP 13.10 H Vancomycin Trough Hepatitis A IgM Ab Non Reactive Non Reactive Hep Bs Antigen Non Reactive Non Reactive Hep B Core IgM Ab Non Reactive Non Reactive Hepatitis C Antibody Non Reactive Non Reactive Misc Test Result Platelets confirmed 12/18/24 12/18/24 10:50 11:20 WBC RBC Hgb Hct MCV MCH MCHC RDW Std Deviation Plt Count Neut % (Auto) Lymph % (Auto) [place] % (Auto) Eos % (Auto) Baso % (Auto) Neut # (Auto) Lymph # (Auto) [place] # (Auto) Eos # (Auto) Baso # (Auto) Immature Gran # (Auto) Absolute Nucleated RBC Immature Gran % Nucleated RBC % Sodium 139 Cancelled Potassium 2.8 L Cancelled Chloride 102 Cancelled Carbon Dioxide 27.5 Cancelled Anion Gap 10 Cancelled BUN 7 L Cancelled Creatinine 0.6 Cancelled Estim Creat Clear Calc 191.9 Cancelled eGFR > 60 Cancelled BUN/Creatinine Ratio 12 Cancelled Glucose [address] Glu mg/dL Hemoglobin A1c Calculated Osmolality 274 L Cancelled Lactic Acid Calcium 7.3 L Cancelled Corrected Calcium 8.1 L Cancelled Phosphorus 1.8 L Cancelled Magnesium Iron TIBC Iron Saturation Unsat Iron Binding Total Bilirubin AST ALT Alkaline Phosphatase Total Protein Albumin 3.0 L Cancelled Globulin Albumin/Globulin Ratio Triglycerides Cholesterol LDL Cholesterol, Calc HDL Cholesterol Cholesterol/HDL Ratio Tumor Marker AFP Vancomycin Trough 23.2 H* Hepatitis A IgM Ab Hep Bs Antigen Hep B Core IgM Ab Hepatitis C Antibody Misc Test Result Quality Measures Quality Measures none Assessment & Plan Assessment Current Active Medications: Generic Name Dose Route Start Last Admin Trade Name Freq PRN Reason Stop Dose Admin Acetaminophen 650 mg 12/17/24 20:38 Acetaminophen 325 Mg Tablet PO 01/16/25 20:37 Q6H PRN Fever >100.3 or pain 1-3 Hydrocodone Bitart/Acetaminophen 1 tab 12/18/24 02:24 12/18/24 11:07 Hydrocodone/Apap 5/325 Tablet PO 12/23/24 02:23 1 tab Q6HR PRN Administration PAIN SCALE 4-10(Mod-Sev Heparin Sodium (Porcine) 5,000 unit 12/17/24 21:00 12/18/24 08:02 Heparin Sod Inj 5000 Unit/Ml Vial SC 12/31/24 20:59 5,000 unit Q12HR BOYD Administration Piperacillin/Tazobactam/Dextrose 3.375 gm in 50 mls @ 12.5 mls/hr 12/17/24 22:00 12/18/24 13:00 Zosyn IV 12/24/24 21:59 12.5 mls/hr Q8HR BOYD Administration Vancomycin HCl 2,000 mg/ 500 mls @ 150 mls/hr 12/17/24 22:00 12/18/24 09:18 Sodium Chloride IV 12/24/24 21:59 10 mg/min Q12H BOYD 150 mls/hr Administration Protocol 10 MG/MIN Magnesium Sulfate 4 gm in 50 mls @ 12.5 mls/hr 12/18/24 15:30 12/18/24 15:28 Magnesium Sulfate Ivpb IV 12/18/24 19:29 Not Given X1 ONE Lisinopril 20 mg 12/18/24 09:00 12/18/24 08:02 Lisinopril 20 Mg Tablet PO 01/17/25 08:59 20 mg QDAY BOYD Administration Lorazepam 0.5 mg 12/17/24 23:02 Lorazepam 0.5 Mg Tablet PO 12/22/24 23:01 Q4HR PRN CIWA Score 2-6 Lorazepam 1 mg 12/17/24 23:02 Lorazepam 0.5 Mg Tablet PO 12/22/24 23:01 Q4HR PRN CIWA SCORE 7-11 Lorazepam 2 mg 12/17/24 23:02 Lorazepam 0.5 Mg Tablet PO 12/22/24 23:01 Q4HR PRN CIWA SCORE 12-15 Ondansetron HCl 4 mg 12/17/24 20:38 Ondansetron Inj 2 Mg/Ml Inj 2 Ml IV 01/16/25 20:37 Q6H PRN NAUSEA OR VOMITING Protocol Pharmacy Consult 1 each 12/18/24 09:00 Vancomycin Pharmacy To Dose 1 Each Each IV 01/17/25 08:59 QDAY PRN PROTOCOL Sennosides 1 tab 12/17/24 20:38 Senna Tablet PO 01/16/25 20:37 QDAY PRN constipation Protocol Plan Mr. Williamson is a 56-year-old male with a previous medical history of hypertension who came in to the ED on 12/13/2024 due to bilateral lower extremities swelling, erythema, lesions, ruptured bullae that started on Saturday. Patient is going to be admitted for bilateral cellulitis and liver cirrhosis treatment and management. #Decompensated Liver cirrhosis #Hyperbillirubinema #Thrombocytopenia #hypoalbuminemia Patient denies history of cirrhosis previously. Most likely cirrhosis in the setting of LI. Patient denies abdominal pain, nausea, vomiting. GI specialist is consulted. -Pt admits to consuming large amounts of alcohol regularly Plan: - Monitor daily CMP ? Hepatitis panel negative ? Avoid hepatotoxic medications - GI specialists Dr. Monroe consulted ,appreciate recommendations #Bilateral cellulites Patient started to have bullous eruption on Saturday, reports the bruise has burst. Extremities bilaterally edematous, erythematous, hot to the touch. SIRS 1/4. qSOFA 0. Plan: - Vancomycin renally dosed qday 12/17- - Zosyn 3.375 mg qday 12/17- - Wound care - MRSA screen - follow-up blood cultures #Acute calculus cholecystitis -Patient denies history of gallstones before. Imaging was positive for acute cholecystitis. -Patient denies nausea, vomiting, abdominal pain. Plan: ? General Surgery consulted -Per Surgery recommendations Pt does not need surgical intervention as he is asymptomatic #Hypertension Plan: - resumed home lisinopril #History of alcohol use Patient reports frequent alcohol use 3-4 times a week and drinks 6 pack of beer each time. Per Dr. Monroe's note patient reports daily alcohol use. Plan: - CIWA protocol Health maintenance: FEN: cardiac DVT prophylaxis: heparic sc GI prophylaxis: none Dispo: medsurg CODE STATUS: Full code Assessment and plan discussed with my senior resident Dr. Earl & attending physician Dr. Smita Castorena (PGY-1)- Internal medicine resident
--- NOTE | 2024-12-18 20:08 | PD.IMPROG ---
Documentation for date of: 12/18/24 Subjective Subjective Interval history: Patient evaluated total bilirubin 16.6 AST ALT 184 and 75 and alk phos 141 Exam Vital Signs Temp Pulse Resp BP Pulse Ox O2 Del Method 97.8 F 118 H 18 144/93 H 95 Room Air 12/18/24 16:00 12/18/24 16:55 12/18/24 16:55 12/18/24 16:00 12/18/24 16:00 12/18/24 16:00 Objective Labs 12/18/24 05:43 12/18/24 10:50 Labs: Laboratory Results - last 24 hr 12/17/24 12/18/24 12/18/24 21:36 05:43 10:50 WBC 4.7 RBC 3.44 L Hgb 12.2 L Hct 32.0 L MCV 93 MCH 35.5 H MCHC 38.1 H RDW Std Deviation 54.5 H Plt Count 74 L D Neut % (Auto) 81 H Lymph % (Auto) 9 L [place] % (Auto) 8 Eos % (Auto) 1 Baso % (Auto) 1 Neut # (Auto) 3.8 Lymph # (Auto) 0.4 L [place] # (Auto) 0.4 Eos # (Auto) 0.0 Baso # (Auto) 0.0 Immature Gran # (Auto) 0.03 H Absolute Nucleated RBC 0.00 Immature Gran % 1 H Nucleated RBC % 0 Sodium 138 139 Potassium 2.6 L* 2.8 L Chloride 101 102 Carbon Dioxide 27.8 27.5 Anion Gap 9 10 BUN 7 L 7 L Creatinine 0.7 0.6 Estim Creat Clear Calc 167.1 191.9 eGFR > 60 > 60 BUN/Creatinine Ratio 10 L 12 Glucose [address] Glu mg/dL 88 Hemoglobin A1c 4.7 L Calculated Osmolality 272 L 274 L Calcium 7.6 L 7.3 L Corrected Calcium 8.4 L 8.1 L Phosphorus 2.5 1.8 L Magnesium 1.1 L 1.2 L Iron 71 TIBC 178 L Iron Saturation 39 Unsat Iron Binding 107 L Total Bilirubin 16.6 H D AST 184 H ALT 75 H Alkaline Phosphatase 140 H D Total Protein 6.5 Albumin 3.0 L 3.0 L Globulin 3.5 Albumin/Globulin Ratio 0.9 L Triglycerides 143 Cholesterol 92 L LDL Cholesterol, Calc 58 HDL Cholesterol < 5 L Cholesterol/HDL Ratio 18.0 H Tumor Marker AFP 13.10 H Vancomycin Trough 23.2 H* Hepatitis A IgM Ab Non Reactive Non Reactive Hep Bs Antigen Non Reactive Non Reactive Hep B Core IgM Ab Non Reactive Non Reactive Hepatitis C Antibody Non Reactive Non Reactive Misc Test Result Platelets confirmed 12/18/24 11:20 WBC RBC Hgb Hct MCV MCH MCHC RDW Std Deviation Plt Count Neut % (Auto) Lymph % (Auto) [place] % (Auto) Eos % (Auto) Baso % (Auto) Neut # (Auto) Lymph # (Auto) [place] # (Auto) Eos # (Auto) Baso # (Auto) Immature Gran # (Auto) Absolute Nucleated RBC Immature Gran % Nucleated RBC % Sodium Cancelled Potassium Cancelled Chloride Cancelled Carbon Dioxide Cancelled Anion Gap Cancelled BUN Cancelled Creatinine Cancelled Estim Creat Clear Calc Cancelled eGFR Cancelled BUN/Creatinine Ratio Cancelled Glucose Cancelled Estimated Ave Glu mg/dL Hemoglobin A1c Calculated Osmolality Cancelled Calcium Cancelled Corrected Calcium Cancelled Phosphorus Cancelled Magnesium Iron TIBC Iron Saturation Unsat Iron Binding Total Bilirubin AST ALT Alkaline Phosphatase Total Protein Albumin Cancelled Globulin Albumin/Globulin Ratio Triglycerides Cholesterol LDL Cholesterol, Calc HDL Cholesterol Cholesterol/HDL Ratio Tumor Marker AFP Vancomycin Trough Hepatitis A IgM Ab Hep Bs Antigen Hep B Core IgM Ab Hepatitis C Antibody Misc Test Result Impressions Impression: Abnormal liver function test secondary to alcohol Complete workup ordered to rule out other causes of chronic active hepatitis Assessment & Plan A&P Narrative # Abnormal liver functions is most likely due to chronic liver disease caused by moderate consumption of alcohol leading to hepatosplenomegaly and fatty infiltration of the liver along with portal hypertension and ascites However other causes of chronic active hepatitis should be ruled out And I have ordered a complete workup Other medical problems include Cellulitis lower extremities patient already on Zosyn and vancomycin Cholelithiasis with possibility of cholecystitis Thank you very much for the opportunity to participate in care of this patient Time Spent With Patient Time: Total time spent is greater than 50% in coordination of care (as documented) at patient's floor/unit and/or counseling patient:
--- NOTE | 2024-12-18 20:26 | PC.NURSE ---
Okay to give heparin to pt per Dr. Yousif, PLT 74, MD aware of low plt count.
[2024-12-18 21:59] LABS: Vancomycin,Trough 10.2 mcg/mL (5.0-10.0)
[2024-12-19] VITALS (8 sets, daily range): BP systolic 120–149; BP diastolic 70–90; PULSE 100–115; RESP 16–98; TEMP 36.3–36.6; O2SAT 95–97
[2024-12-19] MEDS: PIPER/TAZO 3.375 GM PREMIX 3.375 GM/50 ML BAG IV ×3 (06:02→21:20)
[2024-12-19 06:26] LABS: Basophils % (Auto) 1 % (0-2.5); Eosinophils # (Auto) 0.1 Thou/mm3 (0.0-0.5); Eosinophils % (Auto) 2 % (0-10); Hematocrit 29.5 % (41.0-53.0); Immature Granulocytes % (Auto) 1 % (0-0); Immature Granulocytes Auto 0.04 Thou/mm3 (0.00-0.00); Lymphocytes # (Auto) 0.5 Thou/mm3 (1.0-4.8); Lymphocytes % (Auto) 13 % (10-50); Mean Corpuscular HGB Conc 37.3 g/dl (31.0-37.0); Mean Corpuscular Hemoglobin 36.3 pg (25.0-35.0); Mean Corpuscular Volume 97 fL (80-100); Monocytes # (Auto) 0.4 Thou/mm3 (0.0-0.8); Monocytes % (Auto) 10 % (0-12); Neutrophils # (Auto) 2.7 Thou/mm3 (1.8-7.7); Neutrophils % (Auto) 73 % (37-80); Nucleated Red Blood Cell % 0 /100 WBC (0); Platelet Count 93 Thou/mm3 (140-440); RDW Standard Deviation 59.8 fL (35.1-43.9); Red Blood Count 3.03 Miln/mm3 (4.50-5.90); White Blood Count 3.7 Thou/mm3 (3.8-10.6)
[2024-12-19 06:32] LABS: Alanine Aminotransferase 63 U/L (10-49); Albumin, Serum 2.7 gm/dL (3.5-5.0); Albumin/Globulin Ratio 0.8 (1.2-2.2); Alkaline Phosphatase 120 U/L (46-116); Anion Gap 9 (7-16); Aspartate Amino Transferase 149 U/L (0-34); BUN/Creatinine Ratio 9 Ratio (12-20); Bilirubin,Total 17.7 mg/dL (0.3-1.2); Blood Urea Nitrogen 8 mg/dL (9-23); Calcium 7.4 mg/dL (8.3-10.6); Calcium (Corrected) 8.4 mg/dL (8.5-10.1); Carbon Dioxide 28.2 mMol/L (20.0-31.0); Chloride 98 mMol/L (98-107); Creatinine (Component) 0.9 mg/dL (0.6-1.3); Estimated Creatinine Clearance 127.9 mL/min (>60); Globulin 3.4 gm/dL (2.3-3.5); Glucose 88 mg/dL (74-106); Magnesium 1.9 mg/dL (1.6-2.6); Osmolality,Calculated 267 (275-295); Phosphorous 1.4 mg/dL (2.4-5.1); Sodium 135 mMol/L (136-145); Total Protein 6.1 gm/dL (5.7-8.2); eGFR > 60 See Note
[2024-12-19] MEDS: HEPARIN SOD INJ 5000 UNIT/ML VIAL SC ×2 (08:12→21:17)
[2024-12-19] MEDS: POTASSIUM CHLORIDE 20 mEq TABCR 40 MEQ PO (08:12)
[2024-12-19] MEDS: Lisinopril 20 MG TABLET PO (08:12)
[2024-12-19] MEDS: HYDROcodone/APAP 5/325 TABLET 1 TAB PO ×3 (08:16→23:03)
[2024-12-19] MEDS: Vancomycin Inj 2,000 MG in SODIUM CHLORIDE 0.9% 500 ML 500 ML 150 MG IV ×2 (09:12→21:24)
--- NOTE | 2024-12-19 16:31 | ESPR_ITS ---
<Statement entered by Yunior Ordoñez MD - 12/23/24 12:11> I reviewed above note and agree with findings and plans. I have also personally examined the patient with medicine team and went over assessment and plan with medical team including procurement intern and resident physician. <Statement entered by Kelby Quintero MD - 12/21/24 09:19> Senior Resident Attestation: I supervised/discussed management plan with procurement intern physician Dr. Walsh, and was involved in the care of this patient. I personally saw and examined the patient and discussed the assessment and plan with the entire medicine team, including my attending. I agree with the assessment and plan as documented. Patient's care was discussed with attending physician, Dr. Ordoñez. Kelby Quintero MD PGY-2. Documentation for date of: 12/19/24 Subjective Subjective Interval history: No acute overnight events reported. Patient seen and examined at bedside this morning. Patient states he is able to ambulate around the room and is able to get out of bed and use the bathroom and without difficulty shortness of breath or dizziness. Patient is currently sitting on a chair by the window. The severity of his liver disease and the importance of strict alcohol abstinence were discussed. The patient verbalized understanding and expressed interest in a referral through his primary care provider for outpatient follow-up with a cd mixer helper. However, he appears guarded and somewhat avoidant when discussing his liver condition. He is currently receiving empiric antibiotic therapy with Zosyn and vancomycin; blood cultures are pending. A punch biopsy of the skin lesions will be pursued if feasible, to help guide more targeted antimicrobial therapy. Exam Vital Signs Temp Pulse Resp BP Pulse Ox O2 Del Method 97.9 F 115 H 17 138/78 H 95 Room Air 12/19/24 12:00 12/19/24 12:00 12/19/24 12:12/19/24 12:12/19/24 12:12/19/24 12:00 Narrative Exam Physical Exam General: Awake and in no acute distress obese male. HEENT: Normocephalic, atraumatic, mucous membranes moist. Mildly icteric sclerae. Heart: Regular rate and rhythm, no murmurs. Lungs: Decreased lung sounds due to habitus. Abdomen: Soft, nondistended, nontender, positive bowel sounds. ?No guarding or rebound tenderness. Neurologic: Alert, no gross neurological deficit, and patient able to move all 4 extremities. Extremities: Bilateral tibial swelling and edema, tender to palpation. Bilateral tibial bursted bullae with scabs on top. Skin: Bilateral tibial bursted bullae with scabs on top. Objective Labs 12/19/24 04:17 12/19/24 04:17 Labs: Laboratory Results - last 24 hr 12/18/24 12/19/24 21:21 04:17 WBC 3.7 L RBC 3.03 L Hgb 11.0 L Hct 29.5 L MCV 97 MCH 36.3 H MCHC 37.3 H RDW Std Deviation 59.8 H Plt Count 93 L D Neut % (Auto) 73 Lymph % (Auto) 13 [place] % (Auto) 10 Eos % (Auto) 2 Baso % (Auto) 1 Neut # (Auto) 2.7 Lymph # (Auto) 0.5 L [place] # (Auto) 0.4 Eos # (Auto) 0.1 Baso # (Auto) 0.0 Immature Gran # (Auto) 0.04 H Absolute Nucleated RBC 0.00 Immature Gran % 1 H Nucleated RBC % 0 Sodium 135 L Potassium 3.0 L Chloride 98 Carbon Dioxide 28.2 Anion Gap 9 BUN 8 L Creatinine 0.9 Estim Creat Clear Calc 127.9 eGFR > 60 BUN/Creatinine Ratio 9 L Glucose 88 Calculated Osmolality 267 L Calcium 7.4 L Corrected Calcium 8.4 L Phosphorus 1.4 L Magnesium 1.9 Total Bilirubin 17.7 H D AST 149 H ALT 63 H Alkaline Phosphatase 120 H D Total Protein 6.1 Albumin 2.7 L Globulin 3.4 Albumin/Globulin Ratio 0.8 L Vancomycin Trough 10.2 H Quality Measures Quality Measures none Assessment & Plan Assessment Current Active Medications: Generic Name Dose Route Start Last Admin Trade Name Freq PRN Reason Stop Dose Admin Acetaminophen 650 mg 12/17/24 20:38 Acetaminophen 325 Mg Tablet PO 01/16/25 20:37 Q6H PRN Fever >100.3 or pain 1-3 Hydrocodone Bitart/Acetaminophen 1 tab 12/18/24 02:24 12/19/24 16:25 Hydrocodone/Apap 5/325 Tablet PO 12/23/24 02:23 1 tab Q6HR PRN Administration PAIN SCALE 4-10(Mod-Sev Heparin Sodium (Porcine) 5,000 unit 12/17/24 21:00 12/19/24 08:12 Heparin Sod Inj 5000 Unit/Ml Vial SC 12/31/24 20:59 5,000 unit Q12HR BOYD Administration Piperacillin/Tazobactam/Dextrose 3.375 gm in 50 mls @ 12.5 mls/hr 12/17/24 22:00 12/19/24 13:05 Zosyn IV 12/24/24 21:59 12.5 mls/hr Q8HR BOYD Administration Vancomycin HCl 2,000 mg/ 500 mls @ 150 mls/hr 12/17/24 22:00 12/19/24 09:12 Sodium Chloride IV 12/24/24 21:59 10 mg/min Q12H BOYD 150 mls/hr Administration Protocol 10 MG/MIN Lisinopril 20 mg 12/18/24 09:00 12/19/24 08:12 Lisinopril 20 Mg Tablet PO 01/17/25 08:59 20 mg QDAY BOYD Administration Lorazepam 0.5 mg 12/17/24 23:02 Lorazepam 0.5 Mg Tablet PO 12/22/24 23:01 Q4HR PRN CIWA Score 2-6 Lorazepam 1 mg 12/17/24 23:02 Lorazepam 0.5 Mg Tablet PO 12/22/24 23:01 Q4HR PRN CIWA SCORE 7-11 Lorazepam 2 mg 12/17/24 23:02 Lorazepam 0.5 Mg Tablet PO 12/22/24 23:01 Q4HR PRN CIWA SCORE 12-15 Ondansetron HCl 4 mg 12/17/24 20:38 Ondansetron Inj 2 Mg/Ml Inj 2 Ml IV 01/16/25 20:37 Q6H PRN NAUSEA OR VOMITING Protocol Pharmacy Consult 1 each 12/18/24 09:00 Vancomycin Pharmacy To Dose 1 Each Each IV 01/17/25 08:59 QDAY PRN PROTOCOL Sennosides 1 tab 12/17/24 20:38 Senna Tablet PO 01/16/25 20:37 QDAY PRN constipation Protocol Plan Mr. Williamson is a 56-year-old male with a previous medical history of hypertension who came in to the ED on 12/13/2024 due to bilateral lower extremities swelling, erythema, lesions, ruptured bullae that started on Saturday. Patient is going to be admitted for bilateral cellulitis and liver cirrhosis treatment and management. #Decompensated Liver cirrhosis #Hyperbillirubinema #Thrombocytopenia #hypoalbuminemia Patient denies history of cirrhosis previously. Most likely cirrhosis in the setting of LI. Patient denies abdominal pain, nausea, vomiting. GI specialist is consulted. -Pt admits to consuming large amounts of alcohol regularly Plan: - Monitor daily CMP ? Hepatitis panel negative ? Avoid hepatotoxic medications - GI specialists Dr. Monroe consulted ,appreciate recommendations #Bilateral cellulites #Necrotic lesions, bilaterally on shins Patient started to have bullous eruption on Saturday, reports the bruise has burst. Extremities bilaterally edematous, erythematous, hot to the touch. SIRS 1/. qSOFA 0. Plan: - Vancomycin renally dosed qday 12/17- - Zosyn 3.375 mg qday 12/17- - Wound care - MRSA screen - follow-up blood cultures #Acute calculus cholecystitis -Patient denies history of gallstones before. Imaging was positive for acute cholecystitis. -Patient denies nausea, vomiting, abdominal pain. Plan: ? General Surgery consulted -Per Surgery recommendations Pt does not need surgical intervention as he is asymptomatic #Hypertension Plan: - resumed home lisinopril #History of alcohol use Patient reports frequent alcohol use 3-4 times a week and drinks 6 pack of beer each time. Per Dr. Monroe's note patient reports daily alcohol use. Plan: - CIWA protocol Health maintenance: FEN: cardiac DVT prophylaxis: heparic sc GI prophylaxis: none Dispo: medsurg CODE STATUS: Full code Assessment and plan discussed with my senior resident Dr. Quintero & attending physician Dr. Smita Castorena (PGY-1)- Internal medicine resident
--- NOTE | 2024-12-19 17:31 | PD.IMPROG ---
Documentation for date of: 12/19/24 Subjective Subjective Interval history: up trending bilirubin at 17.7 will do you downward trending hemoglobin hematocrit at 11.0 and 29.5 in the setting of chronic liver disease secondary to alcohol Exam Vital Signs Temp Pulse Resp BP Pulse Ox O2 Del Method 97.7 F 102 H 18 149/78 H 97 Room Air 12/19/24 16:00 12/19/24 16:00 12/19/24 16:00 12/19/24 16:00 12/19/24 16:00 12/19/24 12:00 Objective Labs 12/19/24 04:17 12/19/24 04:17 Labs: Laboratory Results - last 24 hr 12/18/24 12/19/24 21:21 04:17 WBC 3.7 L RBC 3.03 L Hgb 11.0 L Hct 29.5 L MCV 97 MCH 36.3 H MCHC 37.3 H RDW Std Deviation 59.8 H Plt Count 93 L D Neut % (Auto) 73 Lymph % (Auto) 13 [place] % (Auto) 10 Eos % (Auto) 2 Baso % (Auto) 1 Neut # (Auto) 2.7 Lymph # (Auto) 0.5 L [place] # (Auto) 0.4 Eos # (Auto) 0.1 Baso # (Auto) 0.0 Immature Gran # (Auto) 0.04 H Absolute Nucleated RBC 0.00 Immature Gran % 1 H Nucleated RBC % 0 Sodium 135 L Potassium 3.0 L Chloride 98 Carbon Dioxide 28.2 Anion Gap 9 BUN 8 L Creatinine 0.9 Estim Creat Clear Calc 127.9 eGFR > 60 BUN/Creatinine Ratio 9 L Glucose 88 Calculated Osmolality 267 L Calcium 7.4 L Corrected Calcium 8.4 L Phosphorus 1.4 L Magnesium 1.9 Total Bilirubin 17.7 H D AST 149 H ALT 63 H Alkaline Phosphatase 120 H D Total Protein 6.1 Albumin 2.7 L Globulin 3.4 Albumin/Globulin Ratio 0.8 L Vancomycin Trough 10.2 H Impressions Impression: Uptrending bilirubin in the setting of cirrhotic liver disease not uncommon in this clinical picture Eventually it will start trending down as patient stays away from alcohol which she has promised Downtrending hemoglobin hematocrit in the setting of cirrhotic liver disease Patient should have a prophylactic upper endoscopy for band ligation of the esophageal varices which have scheduled for tomorrow after informed consent was obtained Assessment & Plan A&P Narrative # Abnormal liver functions is most likely due to chronic liver disease caused by moderate consumption of alcohol leading to hepatosplenomegaly and fatty infiltration of the liver along with portal hypertension and ascites However other causes of chronic active hepatitis should be ruled out And I have ordered a complete workup Other medical problems include Cellulitis lower extremities patient already on Zosyn and vancomycin Cholelithiasis with possibility of cholecystitis Thank you very much for the opportunity to participate in care of this patient Time Spent With Patient Time: Total time spent is greater than 50% in coordination of care (as documented) at patient's floor/unit and/or counseling patient:
[2024-12-20] VITALS (16 sets, daily range): BP systolic 115–147; BP diastolic 69–96; PULSE 79–110; RESP 14–98; TEMP 36.1–37.1; O2SAT 93–98
[2024-12-20] MEDS: PIPER/TAZO 3.375 GM PREMIX 3.375 GM/50 ML BAG IV ×3 (05:19→21:20)
[2024-12-20 06:16] LABS: Basophils # (Auto) 0.1 Thou/mm3 (0.0-0.2); Basophils % (Auto) 1 % (0-2.5); Eosinophils # (Auto) 0.1 Thou/mm3 (0.0-0.5); Eosinophils % (Auto) 3 % (0-10); Hematocrit 28.9 % (41.0-53.0); Hemoglobin 10.7 g/dL (13.5-16.0); Immature Granulocytes % (Auto) 1 % (0-0); Immature Granulocytes Auto 0.03 Thou/mm3 (0.00-0.00); Lymphocytes # (Auto) 0.6 Thou/mm3 (1.0-4.8); Lymphocytes % (Auto) 15 % (10-50); Mean Corpuscular Hemoglobin 35.4 pg (25.0-35.0); Mean Corpuscular Volume 96 fL (80-100); Monocytes # (Auto) 0.4 Thou/mm3 (0.0-0.8); Monocytes % (Auto) 10 % (0-12); Neutrophils # (Auto) 2.5 Thou/mm3 (1.8-7.7); Neutrophils % (Auto) 70 % (37-80); Nucleated Red Blood Cell % 0 /100 WBC (0); Platelet Count 81 Thou/mm3 (140-440); RDW Standard Deviation 59.6 fL (35.1-43.9); Red Blood Count 3.02 Miln/mm3 (4.50-5.90); White Blood Count 3.6 Thou/mm3 (3.8-10.6)
[2024-12-20 06:23] LABS: Alanine Aminotransferase 61 U/L (10-49); Albumin, Serum 2.7 gm/dL (3.5-5.0); Albumin/Globulin Ratio 0.8 (1.2-2.2); Alkaline Phosphatase 112 U/L (46-116); Anion Gap 9 (7-16); Aspartate Amino Transferase 137 U/L (0-34); BUN/Creatinine Ratio 8 Ratio (12-20); Bilirubin,Total 17.9 mg/dL (0.3-1.2); Blood Urea Nitrogen 10 mg/dL (9-23); Calcium 7.6 mg/dL (8.3-10.6); Calcium (Corrected) 8.6 mg/dL (8.5-10.1); Carbon Dioxide 25.8 mMol/L (20.0-31.0); Chloride 100 mMol/L (98-107); Creatinine (Component) 1.2 mg/dL (0.6-1.3); Estimated Creatinine Clearance 95.9 mL/min (>60); Globulin 3.5 gm/dL (2.3-3.5); Glucose 68 mg/dL (74-106); Magnesium 1.7 mg/dL (1.6-2.6); Osmolality,Calculated 267 (275-295); Phosphorous 2.2 mg/dL (2.4-5.1); Potassium 2.8 mMol/L (3.4-5.1); Sodium 135 mMol/L (136-145); Total Protein 6.2 gm/dL (5.7-8.2); eGFR > 60 See Note
[2024-12-20] MEDS: POTASSIUM CHLORIDE 20 mEq TABCR 40 MEQ PO (09:07)
[2024-12-20] MEDS: Lisinopril 20 MG TABLET PO (09:07)
[2024-12-20] MEDS: POT PHOS 15 mMol in NS 250 ML 15 MMOL/250 ML BAG 62.5 MMOL IV ×2 (09:07→13:12)
[2024-12-20] MEDS: HYDROcodone/APAP 5/325 TABLET 1 TAB PO ×2 (09:13→18:02)
[2024-12-20 09:49] LABS: Vancomycin,Trough 27.2 mcg/mL (5.0-10.0)
--- NOTE | 2024-12-20 15:37 | SUR.PHASEI ---
received report from USHA Ayon. Pt arousable to voice, pt repositioned self from left lateral to supine position w/ assist. vss, no distress noted. pt denies any pain or nausea. dressing to bilat lower ext CDI. IV x2 in place and intact, no s/s of redness or infiltration. pt denies any pain or discomfort duriing abd palpation.
--- NOTE | 2024-12-20 15:55 | SUR.PHASEI ---
vss, pt tolerated ice chips, no nausea or pain reported, no distress noted. IV x2 remain free of any redness or infiltration, dressing to tish lower ext remain CDI. patient awake A&ox4. report given to USHA Mojica
--- NOTE | 2024-12-20 17:41 | ESPR_ITS ---
<Statement entered by Yunior Ordoñez MD - 12/23/24 14:55> I reviewed above note and agree with findings and plans. I have also personally examined the patient with medicine team and went over assessment and plan with medical team including internal control specialist and resident physician. <Statement entered by Max Earl MD - 12/21/24 10:33> Patient seen and assessed at bedside, states to be feeling better today. Awaiting EGD by GI. Will continue IV antibiotics and await on cultures. Case discussed with team. Max Earl MD PGY3. Documentation for date of: 12/20/24 Subjective Subjective Interval history: No acute overnight events reported. Patient seen and examined at bedside this morning. Patient denies shortness of breath, chest pain or abdominal pain. Patient is currently n.p.o. for an EGD pending will start patient on Protonix twice daily we wait on the EGD report and recommendations. Blood cultures are negative and significant labs include worsening T. bili 17.9 AST 137 ALT 61 patient is in decompensated liver cirrhosis. And continues to avoid the topic around his end-stage liver disease. Discussed with patient that he may need to follow-up outpatient for a punch biopsy after his wounds heal. Patient has no other complaints. Exam Vital Signs Temp Pulse Resp BP Pulse Ox O2 Del Method O2 Flow Rate 97.4 F 105 H 18 117/72 95 Room Air 3 12/20/24 17:15 12/20/24 17:15 12/20/24 17:15 12/20/24 17:15 12/20/24 17:15 12/20/24 17:15 12/20/24 15:30 Narrative Exam Physical Exam General: Awake and in no acute distress obese male. HEENT: Normocephalic, atraumatic, mucous membranes moist. Mildly icteric sclerae. Heart: Regular rate and rhythm, no murmurs. Lungs: Decreased lung sounds due to habitus. Abdomen: Soft, nondistended, nontender, positive bowel sounds. ?No guarding or rebound tenderness. Neurologic: Alert, no gross neurological deficit, and patient able to move all 4 extremities. Extremities: Bilateral tibial swelling and edema, tender to palpation. Bilateral tibial bursted bullae with scabs on top. Skin: Bilateral tibial bursted bullae with scabs on top. Objective Labs 12/20/24 04:53 12/20/24 04:53 Labs: Laboratory Results - last 24 hr 12/20/24 12/20/24 04:53 08:45 WBC 3.6 L RBC 3.02 L Hgb 10.7 L Hct 28.9 L MCV 96 MCH 35.4 H MCHC 37.0 RDW Std Deviation 59.6 H Plt Count 81 L Neut % (Auto) 70 Lymph % (Auto) 15 Smyth % (Auto) 10 Eos % (Auto) 3 Baso % (Auto) 1 Neut # (Auto) 2.5 Lymph # (Auto) 0.6 L S[place]th # (Auto) 0.4 Eos # (Auto) 0.1 Baso # (Auto) 0.1 Immature Gran # (Auto) 0.03 H Absolute Nucleated RBC 0.00 Immature Gran % 1 H Nucleated RBC % 0 Sodium 135 L Potassium 2.8 L Chloride 100 Carbon Dioxide 25.8 Anion Gap 9 BUN 10 Creatinine 1.2 Estim Creat Clear Calc 95.9 eGFR > 60 BUN/Creatinine Ratio 8 L Glucose 68 L Calculated Osmolality 267 L Calcium 7.6 L Corrected Calcium 8.6 Phosphorus 2.2 L Magnesium 1.7 Total Bilirubin 17.9 H AST 137 H ALT 61 H Alkaline Phosphatase 112 Total Protein 6.2 Albumin 2.7 L Globulin 3.5 Albumin/Globulin Ratio 0.8 L Vancomycin Trough 27.2 H* Quality Measures Quality Measures none Assessment & Plan Assessment Current Active Medications: Generic Name Dose Route Start Last Admin Trade Name Freq PRN Reason Stop Dose Admin Acetaminophen 650 mg 12/17/24 20:38 Acetaminophen 325 Mg Tablet PO 01/16/25 20:37 Q6H PRN Fever >100.3 or pain 1-3 Hydrocodone Bitart/Acetaminophen 1 tab 12/18/24 02:24 12/20/24 09:13 Hydrocodone/Apap 5/325 Tablet PO 12/23/24 02:23 1 tab Q6HR PRN Administration PAIN SCALE 4-10(Mod-Sev Calcium Carbonate 600 mg 12/20/24 10:15 12/20/24 12:02 Calcium Carbonate 600 Mg Tablet PO 01/19/25 10:14 Not Given QDAY BOYD Piperacillin/Tazobactam/Dextrose 3.375 gm in 50 mls @ 12.5 mls/hr 12/17/24 22:00 12/20/24 13:12 Zosyn IV 12/24/24 21:59 12.5 mls/hr Q8HR BOYD Administration Vancomycin HCl/Dextrose 250 mls @ 120 mls/hr 12/20/24 22:00 Vancomycin/D5w 1,250 Mg Ivpb IV 12/27/24 21:59 BID@1000,2200 BOYD Protocol Lisinopril 20 mg 12/18/24 09:00 12/20/24 09:07 Lisinopril 20 Mg Tablet PO 01/17/25 08:59 20 mg QDAY BOYD Administration Lorazepam 0.5 mg 12/17/24 23:02 Lorazepam 0.5 Mg Tablet PO 12/22/24 23:01 Q4HR PRN CIWA Score 2-6 Lorazepam 1 mg 12/17/24 23:02 Lorazepam 0.5 Mg Tablet PO 12/22/24 23:01 Q4HR PRN CIWA SCORE 7-11 Lorazepam 2 mg 12/17/24 23:02 Lorazepam 0.5 Mg Tablet PO 12/22/24 23:01 Q4HR PRN CIWA SCORE 12-15 Ondansetron HCl 4 mg 12/17/24 20:38 Ondansetron Inj 2 Mg/Ml Inj 2 Ml IV 01/16/25 20:37 Q6H PRN NAUSEA OR VOMITING Protocol Pantoprazole Sodium 40 mg 12/20/24 21:00 Pantoprazole 40 Mg Tablet PO 01/19/25 20:59 BID [facility] Pharmacy Consult 1 each 12/18/24 09:00 Vancomycin Pharmacy To Dose 1 Each Each IV 01/17/25 08:59 QDAY PRN PROTOCOL Sennosides 1 tab 12/17/24 20:38 Senna Tablet PO 01/16/25 20:37 QDAY PRN constipation Protocol Plan Mr. Williamson is a 56-year-old male with a previous medical history of hypertension who came in to the ED on 12/13/2024 due to bilateral lower extremities swelling, erythema, lesions, ruptured bullae that started on Saturday. Patient is going to be admitted for bilateral cellulitis and liver cirrhosis treatment and management. #Acute anemia suspicious for varicies, in the setting of #Decompensated Liver cirrhosis #Hyperbillirubinema #Thrombocytopenia #hypoalbuminemia Patient denies history of cirrhosis previously. Most likely cirrhosis in the setting of LI. Patient denies abdominal pain, nausea, vomiting. GI specialist is consulted. -Pt admits to consuming large amounts of alcohol regularly Plan: - Monitor daily CMP ? Hepatitis panel negative ? Avoid hepatotoxic medications - GI specialists Dr. Monroe consulted ,appreciate recommendations -EGD pending -Protonix BID ordered #Bilateral cellulites #Necrotic lesions, bilaterally on shins Patient started to have bullous eruption on Saturday, reports the bruise has burst. Extremities bilaterally edematous, erythematous, hot to the touch. SIRS 1/4. qSOFA 0. Plan: - Vancomycin renally dosed qday 12/17- - Zosyn 3.375 mg qday 12/17- - Wound care - MRSA screen - Blood cultures no growth at 48 hours #Acute calculus cholecystitis -Patient denies history of gallstones before. Imaging was positive for acute cholecystitis. -Patient denies nausea, vomiting, abdominal pain. Plan: ? General Surgery consulted -Per Surgery recommendations Pt does not need surgical intervention as he is asymptomatic #Hypertension Plan: - resumed home lisinopril #History of alcohol use Patient reports frequent alcohol use 3-4 times a week and drinks 6 pack of beer each time. Per Dr. Monroe's note patient reports daily alcohol use. Plan: - CIWA protocol Health maintenance: FEN: cardiac DVT prophylaxis: will hold due to acute anemia, ruling out varices GI prophylaxis: none Dispo: medsurg CODE STATUS: Full code Assessment and plan discussed with my senior resident Dr. Earl & attending physician Dr. Smita Castorena (PGY-1)- Internal medicine resident
[2024-12-20] MEDS: PANTOPRAZOLE 40 MG TABLET PO (21:19)
[2024-12-20] MEDS: VANCOMYCIN/D5W 1,250 MG IVPB 250 ML 120 MG IV (21:20)
[2024-12-21] VITALS (9 sets, daily range): BP systolic 114–156; BP diastolic 66–93; PULSE 66–129; RESP 16–20; TEMP 36.5–37.1; O2SAT 92–97
[2024-12-21] MEDS: HYDROcodone/APAP 5/325 TABLET 1 TAB PO ×4 (00:11→20:49)
[2024-12-21 05:15] LABS: Basophils # (Auto) 0.1 Thou/mm3 (0.0-0.2); Basophils % (Auto) 2 % (0-2.5); Eosinophils # (Auto) 0.1 Thou/mm3 (0.0-0.5); Eosinophils % (Auto) 2 % (0-10); Hematocrit 30.3 % (41.0-53.0); Immature Granulocytes % (Auto) 1 % (0-0); Immature Granulocytes Auto 0.03 Thou/mm3 (0.00-0.00); Lymphocytes # (Auto) 0.6 Thou/mm3 (1.0-4.8); Lymphocytes % (Auto) 15 % (10-50); Mean Corpuscular HGB Conc 36.3 g/dl (31.0-37.0); Mean Corpuscular Hemoglobin 35.8 pg (25.0-35.0); Mean Corpuscular Volume 99 fL (80-100); Monocytes # (Auto) 0.4 Thou/mm3 (0.0-0.8); Monocytes % (Auto) 10 % (0-12); Neutrophils % (Auto) 71 % (37-80); Nucleated Red Blood Cell % 0 /100 WBC (0); Platelet Count 95 Thou/mm3 (140-440); RDW Standard Deviation 64.1 fL (35.1-43.9); Red Blood Count 3.07 Miln/mm3 (4.50-5.90); White Blood Count 4.2 Thou/mm3 (3.8-10.6)
[2024-12-21] MEDS: PIPER/TAZO 3.375 GM PREMIX 3.375 GM/50 ML BAG IV ×3 (05:43→21:03)
[2024-12-21 06:23] LABS: Alanine Aminotransferase 61 U/L (10-49); Albumin/Globulin Ratio 0.8 (1.2-2.2); Alkaline Phosphatase 125 U/L (46-116); Anion Gap 8 (7-16); Aspartate Amino Transferase 134 U/L (0-34); BUN/Creatinine Ratio 11 Ratio (12-20); Blood Urea Nitrogen 14 mg/dL (9-23); Calcium 7.8 mg/dL (8.3-10.6); Calcium (Corrected) 8.6 mg/dL (8.5-10.1); Carbon Dioxide 26.3 mMol/L (20.0-31.0); Chloride 103 mMol/L (98-107); Creatinine (Component) 1.3 mg/dL (0.6-1.3); Estimated Creatinine Clearance 88.6 mL/min (>60); Globulin 3.6 gm/dL (2.3-3.5); Glucose 78 mg/dL (74-106); Osmolality,Calculated 273 (275-295); Potassium 3.1 mMol/L (3.4-5.1); Sodium 137 mMol/L (136-145); Total Protein 6.6 gm/dL (5.7-8.2); eGFR > 60 See Note
[2024-12-21 06:25] LABS: Bilirubin,Total 20.4 mg/dL (0.3-1.2)
[2024-12-21 08:36] LABS: Phosphorous 2.9 mg/dL (2.4-5.1)
[2024-12-21] MEDS: VANCOMYCIN/D5W 1,250 MG IVPB 250 ML 120 MG IV (09:58)
[2024-12-21] MEDS: CALCIUM CARBONATE 600 MG TABLET PO (10:51)
[2024-12-21] MEDS: Lisinopril 20 MG TABLET PO (10:51)
[2024-12-21] MEDS: POTASSIUM CHLORIDE 20 mEq TABCR 40 MEQ PO (10:51)
[2024-12-21] MEDS: PANTOPRAZOLE 40 MG TABLET PO ×2 (10:51→20:49)
[2024-12-21 11:00] LABS: INR 1.3 (0.9-1.3); Partial Thromboplastin Time 30.5 Seconds (22.0-36.0); Prothrombin Time 13.8 Seconds (9.0-12.2)
--- NOTE | 2024-12-21 11:05 | PC.CC ---
Addendum entered by Cari Joya RN 12/21/24 13:18: 1313 spoke to Will and informed pt is refusing the transfer and Dr. Quintero has canceled the transfer. [address] Quintero and he informed me that pt is refusing to be transferred. Therefore, they are canceling the transfer request. 1308 received call from Will at [facility] transfer center that he spoke to the pt and he is refusing the transfer. He stated pt is angry and was under the impression that 'veena are going to treat his legs and liver with medications. Addendum entered by Cari Joya RN 12/21/24 13:14: 1307 received call from [facility], spoke to Susana with financial dept. She stated to get auth for the transfer. Addendum entered by Cari Joya RN 12/21/24 12:35: 1232 emailed clinicals to [facility]/liver academic support coordinator at [facility] [email or web address] Addendum entered by Cari Joya RN 12/21/24 12:34: 1205 received call from [facility]/liver academic support coordinator at [facility] and gave clinicals. I informed him clinicals has been faxed and he stated to email the clinicals to [email or web address] and his direct number is [phone]. Total call time 20min. Addendum entered by Cari Joya RN 12/21/24 11:46: 1136 called [facility], spoke to Chiara and initiated the transfer. Addendum entered by Cari Joya RN 12/21/24 11:42: 1105 late note last drink was 1 week ago. Addendum entered by Cari Joya RN 12/21/24 11:37: 1135 clinicals [facility] to [facility] Addendum entered by Cari Joya RN 12/21/24 11:27: 1120 called [facility] TC, spoke to Salome and initiated the transfer. She stated to fax clinicals and academic support coordinator will call me back. Original Note: [address] Quintero that pt needs to be transferred for acute decompensated liver cirrhosis secondary to alcohol. Pt has history of heavy drinking. But now pt has cut down currently drink beer 1-2 drinks/day for 3 to 4 times a week.
[2024-12-21] MEDS: POTASSIUM CHL 10 mEq IVPB 10 MEQ/100 ML BAG 100 MEQ IV ×2 (11:06→12:12)
[2024-12-21] MEDS: SPIRONOLACTONE 25 MG TABLET PO (12:12)
--- NOTE | 2024-12-21 12:13 | PC.SS ---
SS follow up note; Awaiting EGD by GI. On IV antibiotics, cultures pending. Patient will discharge back home when medically cleared.
--- NOTE | 2024-12-21 14:44 | ESPR_ITS ---
<Statement entered by Yunior Ordoñez MD - 12/25/24 08:12> I reviewed above note and agree with findings and plans. I have also personally examined the patient with medicine team and went over assessment and plan with medical team including quality internship and resident physician. Documentation for date of: 12/21/24 Subjective Subjective Interval history: Patient was seen and examined at bedside. No acute overnight events. Patient underwent EGD yesterday and no acute bleeding was identified, grade 1 esophageal varices and ulcers noted. His total bilirubin today 20.4, uptrending. Electrolytes were repleted. Will continue current management and monitor bilirubin. Patient adamantly refused transfer for hepatology evaluation for possible liver transplant and wants to follow-up with his PCP. Exam Vital Signs Temp Pulse Resp BP Pulse Ox O2 Del Method O2 Flow Rate 97.8 F 98 18 138/66 H 97 Room Air 3 12/21/24 12:00 12/21/24 12:12 12/21/24 08:00 12/21/24 12:12 12/21/24 12:00 12/21/24 12:00 12/20/24 15:30 Narrative Exam Gen: Well-developed and well-nourished obese male. HEENT: NCAT, PERRLA, EOMI, MMM, icteric conjunctivae and skin. CVS: normal S1 and S2. RRR. No M/R/G. Resp: CTA B/L. No rhonchi, rales, crackles or wheezing. Abd: soft, morbidly obese, non-tender, non-distended. BS+ in all 4 quadrants. MSK: Good ROM in BUE & BLE. Bilateral lower extremities are wrapped in sterile bandage and appear clean. Neuro: CN II-XII grossly intact. Strength 5/5 in BUE & BLE. Alert and oriented x3. Psych: appropriate mood and affect. Objective Labs 12/21/24 04:14 12/21/24 04:14 Labs: Laboratory Results - last 24 hr 12/21/24 04:14 WBC 4.2 RBC 3.07 L Hgb 11.0 L Hct 30.3 L MCV 99 MCH 35.8 H MCHC 36.3 RDW Std Deviation 64.1 H Plt Count 95 L Neut % (Auto) 71 Lymph % (Auto) 15 [place]lin % (Auto) 10 Eos % (Auto) 2 Baso % (Auto) 2 Neut # (Auto) 3.0 Lymph # (Auto) 0.6 L [place]lin # (Auto) 0.4 Eos # (Auto) 0.1 Baso # (Auto) 0.1 Immature Gran # (Auto) 0.03 H Absolute Nucleated RBC 0.00 Immature Gran % 1 H Nucleated RBC % 0 PT 13.8 H INR 1.3 APTT 30.5 Sodium 137 Potassium 3.1 L Chloride 103 Carbon Dioxide 26.3 Anion Gap 8 BUN 14 Creatinine 1.3 Estim Creat Clear Calc 88.6 eGFR > 60 BUN/Creatinine Ratio 11 L Glucose 78 Calculated Osmolality 273 L Calcium 7.8 L Corrected Calcium 8.6 Phosphorus 2.9 Total Bilirubin 20.4 H* D AST 134 H ALT 61 H Alkaline Phosphatase 125 H Total Protein 6.6 Albumin 3.0 L Globulin 3.6 H Albumin/Globulin Ratio 0.8 L Quality Measures Quality Measures VTE prophylaxis Assessment & Plan Assessment Current Active Medications: Generic Name Dose Route Start Last Admin Trade Name Freq PRN Reason Stop Dose Admin Acetaminophen 650 mg 12/17/24 20:38 Acetaminophen 325 Mg Tablet PO 01/16/25 20:37 Q6H PRN Fever >100.3 or pain 1-3 Hydrocodone Bitart/Acetaminophen 1 tab 12/18/24 02:24 12/21/24 13:47 Hydrocodone/Apap 5/325 Tablet PO 12/23/24 02:23 1 tab Q6HR PRN Administration PAIN SCALE 4-10(Mod-Sev Calcium Carbonate 600 mg 12/20/24 10:15 12/21/24 10:51 Calcium Carbonate 600 Mg Tablet PO 01/19/25 10:14 600 mg QDAY BOYD Administration Piperacillin/Tazobactam/Dextrose 3.375 gm in 50 mls @ 12.5 mls/hr 12/17/24 22:00 12/21/24 13:46 Zosyn IV 12/24/24 21:59 12.5 mls/hr Q8HR BOYD Administration Vancomycin HCl/Dextrose 250 mls @ 120 mls/hr 12/20/24 22:00 12/21/24 09:58 Vancomycin/D5w 1,250 Mg Ivpb IV 12/27/24 21:59 120 mls/hr BID@1000,2200 BOYD Administration Protocol Lisinopril 20 mg 12/18/24 09:00 12/21/24 10:51 Lisinopril 20 Mg Tablet PO 01/17/25 08:59 20 mg QDAY BOYD Administration Lorazepam 0.5 mg 12/17/24 23:02 Lorazepam 0.5 Mg Tablet PO 12/22/24 23:01 Q4HR PRN CIWA Score 2-6 Lorazepam 1 mg 12/17/24 23:02 Lorazepam 0.5 Mg Tablet PO 12/22/24 23:01 Q4HR PRN CIWA SCORE 7-11 Lorazepam 2 mg 12/17/24 23:02 Lorazepam 0.5 Mg Tablet PO 12/22/24 23:01 Q4HR PRN CIWA SCORE 12-15 Ondansetron HCl 4 mg 12/17/24 20:38 Ondansetron Inj 2 Mg/Ml Inj 2 Ml IV 01/16/25 20:37 Q6H PRN NAUSEA OR VOMITING Protocol Pantoprazole Sodium 40 mg 12/20/24 21:00 12/21/24 10:51 Pantoprazole 40 Mg Tablet PO 01/19/25 20:59 40 mg BID BOYD Administration Pharmacy Consult 1 each 12/18/24 09:00 Vancomycin Pharmacy To Dose 1 Each Each IV 01/17/25 08:59 QDAY PRN PROTOCOL Sennosides 1 tab 12/17/24 20:38 Senna Tablet PO 01/16/25 20:37 QDAY PRN constipation Protocol Spironolactone 25 mg 12/21/24 11:15 12/21/24 12:12 Spironolactone 25 Mg Tablet PO 01/20/25 11:14 25 mg QDAY BOYD Administration Plan Mr. Williamson is a 56-year-old male with a previous medical history of hypertension who came in to the ED on 12/13/2024 due to bilateral lower extremities swelling, erythema, lesions, ruptured bullae that started on Saturday. Patient is going to be admitted for bilateral cellulitis and liver cirrhosis treatment and management. #Decompensated Liver cirrhosis 2/2 alcohol use. #Hyperbillirubinema, worsening. #Hypoalbuminemia. - Patient denies history of cirrhosis previously. Most likely cirrhosis in the setting of alcohol use. Patient denies abdominal pain, nausea, vomiting. - Pt admits to consuming large amounts of alcohol regularly. - GI specialists Dr. Monroe consulted ,appreciate recommendations. - Patient underwent EGD and no acute bleeding was identified, grade 1 esophageal varices and ulcers noted. Plan: - Monitor daily labs. - Hepatitis panel negative. - Avoid hepatotoxic medications. - Protonix 40 mg BID ordered. - started on spironolactone 25 mg. #Normocytic anemia, likely in setting of decompensated liver disease. #Thrombocytopenia. - Hgb on admission 13, downtrended to 10.7 and now at 11. MCV 99. PLT 111. - Patient underwent EGD and no acute bleeding was identified, grade 1 esophageal varices and ulcers noted. Plan: - resumed DVT prophylaxis. - monitor with daily labs. - started on folic acid and B-complex. #Bilateral cellulites. #Necrotic lesions, bilaterally on shins. Patient started to have bullous eruption on Saturday, reports the bruise has burst. Extremities bilaterally edematous, erythematous, hot to the touch. SIRS 1/4. qSOFA 0. Plan: - Vancomycin renally dosed qday 12/17- - Zosyn 3.375 mg qday 12/17- - Wound care. - Blood cultures no growth at 48 hours. #Hypokalemia. - repleted daily. #Possible acute calculus cholecystitis. -Patient denies history of gallstones before. Imaging was positive for acute cholecystitis. -Patient denies nausea, vomiting, abdominal pain. -General Surgery consulted. - Per Surgery recommendations Pt does not need surgical intervention as he is asymptomatic and it is likely gallbladder edema from ascitis and liver disease. #Hypertension. Plan: - resumed home lisinopril. #History of alcohol use. Patient reports frequent alcohol use 3-4 times a week and drinks 6 pack of beer each time. Per Dr. Monroe's note patient reports daily alcohol use. Plan: - CIWA protocol. - thiamine, folic acid and B-complex daily. Health maintenance: FEN: low sodium. DVT prophylaxis: lovenox. GI prophylaxis: protonix. Dispo: medsurg. CODE STATUS: Full code. Plan of care discussed with attending Dr. Ordoñez. Kelby Quintero MD, PGY 2. Disclaimer: This note was dictated by speech recognition. Minor errors in custom tailor may be present due to voice recognition software.
[2024-12-21] MEDS: VITAMIN B COMPLEX TABLET 1 TAB PO (15:35)
[2024-12-21] MEDS: THIAMINE INJ 100 MG/ML VIAL 2 ML IVP (15:36)
[2024-12-21] MEDS: FOLIC ACID 1 MG TABLET PO (15:36)
--- NOTE | 2024-12-21 16:21 | PC.LAC ---
Nurse from [facility] called to talk to patient about his liver transfer. Patient did not want to talk to nurse. Will continue to monitor patient.
--- NOTE | 2024-12-21 17:20 | PC.NURSE ---
Chiara from [facility] called and notified me they declined the patients transfer. Patient refused to talk to the transfer nurse earlier for an evaluation. Will continue to monitor patient.
--- NOTE | 2024-12-21 19:06 | PD.IMPROG ---
Documentation for date of: 12/21/24 Subjective Subjective Interval history: Case discussed with internal medicine team patient total bilirubin is on the rise now up to 20.4 Pro time INR remains at 1.3 which is reasonable it was 1.2 on admission Upper endoscopy showed distal esophageal ulcers and 1 to esophageal varices and gastritis Exam Vital Signs Temp Pulse Resp BP Pulse Ox O2 Del Method O2 Flow Rate 97.7 F 101 H 16 114/81 94 L Room Air 3 12/21/24 15:54 12/21/24 15:54 12/21/24 15:54 12/21/24 15:54 12/21/24 15:54 12/21/24 12:00 12/20/24 15:30 Objective Labs 12/21/24 04:14 12/21/24 04:14 Labs: Laboratory Results - last 24 hr 12/21/24 04:14 WBC 4.2 RBC 3.07 L Hgb 11.0 L Hct 30.3 L MCV 99 MCH 35.8 H MCHC 36.3 RDW Std Deviation 64.1 H Plt Count 95 L Neut % (Auto) 71 Lymph % (Auto) 15 [place] % (Auto) 10 Eos % (Auto) 2 Baso % (Auto) 2 Neut # (Auto) 3.0 Lymph # (Auto) 0.6 L [place] # (Auto) 0.4 Eos # (Auto) 0.1 Baso # (Auto) 0.1 Immature Gran # (Auto) 0.03 H Absolute Nucleated RBC 0.00 Immature Gran % 1 H Nucleated RBC % 0 PT 13.8 H INR 1.3 APTT 30.5 Sodium 137 Potassium 3.1 L Chloride 103 Carbon Dioxide 26.3 Anion Gap 8 BUN 14 Creatinine 1.3 Estim Creat Clear Calc 88.6 eGFR > 60 BUN/Creatinine Ratio 11 L Glucose 78 Calculated Osmolality 273 L Calcium 7.8 L Corrected Calcium 8.6 Phosphorus 2.9 Total Bilirubin 20.4 H* D AST 134 H ALT 61 H Alkaline Phosphatase 125 H Total Protein 6.6 Albumin 3.0 L Globulin 3.6 H Albumin/Globulin Ratio 0.8 L Impressions Impression: Although her total bilirubin is rising synthetic function with a almost near normal prothrombin time is a good indicator that his liver function will eventually recover As long as he does not drink If the bilirubin keeps rising and the pro time keeps deteriorating then he needs to be transferred to a tertiary center for evaluation for liver transplant The only place which accepts liver transplant even with active use of alcohol is [facility] Assessment & Plan A&P Narrative # Abnormal liver functions is most likely due to chronic liver disease caused by moderate consumption of alcohol leading to hepatosplenomegaly and fatty infiltration of the liver along with portal hypertension and ascites However other causes of chronic active hepatitis should be ruled out And I have ordered a complete workup Other medical problems include Cellulitis lower extremities patient already on Zosyn and vancomycin Cholelithiasis with possibility of cholecystitis Thank you very much for the opportunity to participate in care of this patient Time Spent With Patient Time: Total time spent is greater than 50% in coordination of care (as documented) at patient's floor/unit and/or counseling patient:
[2024-12-21 21:44] LABS: Vancomycin,Trough 16.2 mcg/mL (5.0-10.0)
--- NOTE | 2024-12-21 22:18 | PC.NURSE ---
Notify MD Syed trough is 16.2 and per protocol to hold the dose if trough is >15. Per pharmacy to hold Vancomycin until the next dose.
[2024-12-22] VITALS: BP 147/91; PULSE 98; RESP 18; TEMP 36.2; O2SAT 96
[2024-12-22 04:00] VITALS: BP 140/92; PULSE 105; RESP 18; TEMP 36.2; O2SAT 95
[2024-12-22] MEDS: PIPER/TAZO 3.375 GM PREMIX 3.375 GM/50 ML BAG IV (05:15)
[2024-12-22] MEDS: HYDROcodone/APAP 5/325 TABLET 1 TAB PO ×2 (05:29→11:26)
[2024-12-22 06:32] LABS: Basophils # (Auto) 0.1 Thou/mm3 (0.0-0.2); Basophils % (Auto) 1 % (0-2.5); Eosinophils # (Auto) 0.1 Thou/mm3 (0.0-0.5); Eosinophils % (Auto) 2 % (0-10); Hematocrit 29.8 % (41.0-53.0); Hemoglobin 10.7 g/dL (13.5-16.0); Immature Granulocytes % (Auto) 1 % (0-0); Immature Granulocytes Auto 0.04 Thou/mm3 (0.00-0.00); Lymphocytes # (Auto) 0.5 Thou/mm3 (1.0-4.8); Lymphocytes % (Auto) 14 % (10-50); Mean Corpuscular HGB Conc 35.9 g/dl (31.0-37.0); Mean Corpuscular Hemoglobin 35.2 pg (25.0-35.0); Mean Corpuscular Volume 98 fL (80-100); Monocytes # (Auto) 0.4 Thou/mm3 (0.0-0.8); Monocytes % (Auto) 11 % (0-12); Neutrophils # (Auto) 2.5 Thou/mm3 (1.8-7.7); Neutrophils % (Auto) 70 % (37-80); Nucleated Red Blood Cell % 0 /100 WBC (0); Platelet Count 85 Thou/mm3 (140-440); Red Blood Count 3.04 Miln/mm3 (4.50-5.90); White Blood Count 3.5 Thou/mm3 (3.8-10.6)
[2024-12-22 06:56] LABS: Alanine Aminotransferase 57 U/L (10-49); Albumin, Serum 2.9 gm/dL (3.5-5.0); Albumin/Globulin Ratio 0.8 (1.2-2.2); Alkaline Phosphatase 120 U/L (46-116); Anion Gap 9 (7-16); Aspartate Amino Transferase 128 U/L (0-34); BUN/Creatinine Ratio 10 Ratio (12-20); Blood Urea Nitrogen 12 mg/dL (9-23); Calcium 7.8 mg/dL (8.3-10.6); Calcium (Corrected) 8.7 mg/dL (8.5-10.1); Carbon Dioxide 25.8 mMol/L (20.0-31.0); Chloride 100 mMol/L (98-107); Creatinine (Component) 1.2 mg/dL (0.6-1.3); Estimated Creatinine Clearance 95.9 mL/min (>60); Globulin 3.5 gm/dL (2.3-3.5); Glucose 84 mg/dL (74-106); Osmolality,Calculated 268 (275-295); Sodium 135 mMol/L (136-145); Total Protein 6.4 gm/dL (5.7-8.2); eGFR > 60 See Note
[2024-12-22 07:22] LABS: Bilirubin,Total 18.5 mg/dL (0.3-1.2)
[2024-12-22 08:00] VITALS: BP 136/96; PULSE 101; RESP 19; TEMP 36.9; O2SAT 97
[2024-12-22] MEDS: CALCIUM CARBONATE 600 MG TABLET PO (08:46)
[2024-12-22 08:47] VITALS: BP 136/96; PULSE 101
[2024-12-22] MEDS: VITAMIN B COMPLEX TABLET 1 TAB PO (08:47)
[2024-12-22] MEDS: Lisinopril 20 MG TABLET PO (08:47)
[2024-12-22] MEDS: FOLIC ACID 1 MG TABLET PO (08:47)
[2024-12-22] MEDS: SPIRONOLACTONE 25 MG TABLET PO (08:47)
[2024-12-22] MEDS: PANTOPRAZOLE 40 MG TABLET PO (08:48)
[2024-12-22] MEDS: POTASSIUM CHLORIDE 20 mEq TABCR 40 MEQ PO (08:49)
[2024-12-22] MEDS: THIAMINE INJ 100 MG/ML VIAL 2 ML IVP (08:50)
[2024-12-22] MEDS: VANCOMYCIN/NS 1 GM IVPB 200 ML IV (11:14)
[2024-12-22 11:51] VITALS: BP 131/91; PULSE 98; RESP 17; TEMP 36.8; O2SAT 96
--- NOTE | 2024-12-22 18:23 | ESDS_ITS ---
<Statement entered by Yunior Ordoñez MD - 12/25/24 08:19> I reviewed above note and agree with findings and plans. I have also personally examined the patient with medicine team and went over assessment and plan with medical team including internal revenue agent and resident physician. Planned Discharge Date 12/22/24 DS: Providers Provider Date of admission: 12/17/24 20:50 Primary care physician: Joan Fisher PA-C Admitting Provider: Maurice Boles MD Attending Provider on Admission: Yunior Ordoñez MD Consults: 12/17/24 19:20 Consult to Gastroenterology Stat Comment: Transaminitis, liver cirrhosis, elevated total tish Consulting Provider: Mona Monroe 12/17/24 19:21 Consult to General Surgery Stat Comment: Acute calculus cholecystitis Consulting Provider: Edna Sigala 12/17/24 23:23 Referral Wound Care Routine Comment: Instructions: Bilateral leg cellulitis. 12/17/24 23:24 Referral Nutritional Services Routine Comment: 12/21/24 11:37 Referral OP Wound Healing Dept Routine Comment: Instructions: BLE cellulitis Attending Provider on DC: Miroslava Castorena MD Discharging Provider: Miroslava Castorena MD DS: Diagnosis Problem List Completed Was Problem List Reviewed/Reconciled?: Yes Hospital Course Hospital Course Hospital course: Mr. Williamson is A 56-year-old male with a medical history significant for hypertension presented to [facility] Emergency Department on 12/13/2024 due to bilateral lower extremity swelling, erythema, and lesions with ruptured bullae. The patient reported that his has similar lesions and is under care at a wound care clinic, and that he frequently performs wound care at home.Upon admission, the patient was started on intravenous antibiotics and blood cultures were obtained. The cultures returned negative, including for MRSA. During hospitalization, the patient was found to have decompensated liver failure, which was subsequently diagnosed as cirrhosis secondary to alcohol abuse. This diagnosis was new and the patient was unaware of his liver pathology. The patient also developed acute anemia, prompting a consult with gastroenterology. An upper endoscopy revealed the following findings: -Grade 1 esophageal varices in the lower third of the esophagus -Numerous linear esophageal ulcers at the gastroesophageal junction -Diffuse moderate inflammation throughout the stomach -Diffuse erythematous mucosa in the duodenal bulb, without active bleeding or stigmata of bleeding. The patient was extensively counseled regarding the need for complete abstinence from alcohol and was advised to follow up with a public relations director to explore the possibility of liver transplantation. However, the patient exhibited significant denial regarding his liver disease, frequently cutting conversations short and showing minimal receptivity to discussions about his deteriorating liver condition. A transfer to a tertiary care facility for liver transplant evaluation was offered but firmly declined by the patient. He expressed a strong preference to be discharged home, where he planned to follow up with the appropriate specialists. Additionally, the patient was advised to follow up with a oil field pumper for a biopsy of his skin lesions, as biopsies could not be performed during hospitalization due to the risk of introducing infection into the bloodstream. Pt is hymodynamically stable to be discharged home to self care and continue antibiotics, follow up with wound care clinic and obtain referral to oil field pumper and public relations director. Discharge Recommendations -Follow up outpatient with your primary care with in 2 weeks after discharge -Follow up outpatient with GI specialist Dr. Monroe outpatient within 2 weeks. -You will need need referral to a public relations director to follow up with your recent diagnosis -You will also need a referral to oil field pumper to identify your skin lesions -Follow up with wound care for cleaning wounds and changing dressings -You have been prescribed two antibiotics to complete the course of your antibiotics, please take them as directed -You have been prescribed propanolol, spironolactone, furosamide and pantoprazole for your new diagnoses of decompensated liver cirrhosis -Please abstain from alcohol -Continue a healthy diet, please avoid using NSAIDs for pain -If your symptoms return or worsen please return to ED immediately Hospitalization Diagnosis #Decompensated Liver cirrhosis 2/2 alcohol use. #Hyperbillirubinema, initially worsening, then improving #Hypoalbuminemia. #Normocytic anemia, likely in setting of decompensated liver disease. #Thrombocytopenia. #Bilateral cellulites. #Necrotic lesions, bilaterally on shins. #Hypokalemia- resolved #Possible acute calculus cholecystitis. #Hypertension. #History of alcohol use. Assessment and plan discussed with my attending physician Dr. Smita Castorena (PGY-1)- Internal medicine resident Time Spent with Patient Time attestation: Total time spent providing and/or coordinating discharge services: Time spent: Greater than 30 minutes Exam Vital Signs Temp Pulse Resp BP Pulse Ox O2 Del Method O2 Flow Rate 98.3 F 98 17 131/91 H 96 Room Air 3 12/22/24 11:51 12/22/24 11:51 12/22/24 11:51 12/22/24 11:51 12/22/24 11:51 12/22/24 11:51 12/20/24 15:30 Narrative Exam Physical Exam General: Awake and in no acute distress obese male. HEENT: Normocephalic, atraumatic, mucous membranes moist. Mildly icteric sclerae. Heart: Regular rate and rhythm, no murmurs. Lungs: Decreased lung sounds due to habitus. Abdomen: Soft, nondistended, nontender, positive bowel sounds. ?No guarding or rebound tenderness. Neurologic: Alert, no gross neurological deficit, and patient able to move all 4 extremities. Extremities: Bilateral tibial swelling and edema, tender to palpation. Bilateral tibial bursted bullae with scabs on top. Skin: Bilateral tibial bursted bullae with scabs on top. Discharge Plan Plan Patient Disposition: HOME (Self Care) Patient condition on transfer: Stable Care Plan Goals: -Follow up outpatient with your primary care with in 2 weeks after discharge -Follow up outpatient with GI specialist Dr. Monroe outpatient within 2 weeks. -You will need need referral to a public relations director to follow up with your recent diagnosis -You will also need a referral to oil field pumper to identify your skin lesions -Follow up with wound care for cleaning wounds and changing dressings -You have been prescribed two antibiotics to complete the course of your antibiotics, please take them as directed -You have been prescribed propanolol, spironolactone, furosamide and pantoprazole for your new diagnoses of decompensated liver cirrhosis -Please abstain from alcohol -Continue a healthy diet, please avoid using NSAIDs for pain -If your symptoms return or worsen please return to ED immediately Prescriptions/Referrals Prescriptions/Med Rec: New spironolactone 25 mg Tablet 25 mg PO QDAY 30 Days Qty: 30 3RF pantoprazole 40 mg Tablet,Delayed Release (Dr/Ec) 40 mg PO BID 30 Days Qty: 60 3RF amoxicillin-pot clavulanate 875-125 mg tablet 1 tab PO BID 9 Days Qty: 18 0RF doxycycline hyclate 100 mg tablet 100 mg PO QDAY 9 Days Qty: 9 0RF furosemide [Lasix] 20 mg tablet 20 mg PO QDAY Qty: 30 3RF propranolol 10 mg tablet 10 mg PO BID 30 Days Qty: 60 3RF Referrals: Joan Fisher PA-C [Primary Care Provider] - Patient/Caregiver Discharge Instructions Other Discharge Diet Instructions: 1) Follow up with [facility] as scheduled on Saturday. Call [phone] to reschedule. *if unable to follow at [facility], follow at [facility], [address] [place] [address]. Call [phone] for appointment 2) Wound care to bilateral lower legs: Shower daily with hibicleanse (over the counter) antibacterial soap. (Rinse shower with bleach after using to avoid bacterial contamination to other family members) - Ensure wounds are clean, than apply vasoline gauze over open wounds. Cover with abd pad and secure with kerlix roll or medipore tape. -Change once a day and as needed for falling off. Keep legs covered. 3) Elevate ankles above heart level while in bed to assist with swelling. 4) If active bleeding occurs, apply tight dressing and return to MD or ER. ?Notify primary doctor or return to Emergency Room if any of the following: ?Fever above 100.6? F. ?Increased pain ?Increase swelling ?Red streaks around your wound ?Drainage becomes foul smelling or changes color ?The wound is larger or deeper ?The wound looks dried out or dark ?Bleeding that does not stop with holding pressure Education Materials: Alcohol and Older Adults, Nutrition for Wound Healing, Understanding Cirrhosis, Alcoholism Resources, Changing Dressing Dc, ED Cirrhosis Print Language: Togolese Stand Alone Forms: Tonya Award Info., Patient Portal Info Letter Discharge Order Discharge Orders: Discharge (Routine); Ordered 12/22/24 Ordered By: Miroslava Castorena Quality Discharge Quality Measures VTE prophylaxis
--- NOTE | 2024-12-22 21:50 | ESPR_ITS ---
Documentation for date of: 12/22/24 Subjective Subjective Interval history: Late entry for the note Case discussed with internal medicine team Patient be discharged home on Protonix 40 mg twice daily Lasix 20 mg p.o. daily Spironolactone 25 mg p.o. twice daily 2 g sodium diet Patient was presented to be followed by the internal medicine clinic however he show for choosing his PCP which is okay as he needs a liver transplant evaluation in the future But he has to be abstinent from alcohol first Exam Vital Signs Temp Pulse Resp BP Pulse Ox O2 Del Method O2 Flow Rate 98.3 F 98 17 131/91 H 96 Room Air 3 12/22/24 11:51 12/22/24 11:51 12/22/24 11:51 12/22/24 11:51 12/22/24 11:51 12/22/24 11:51 12/20/24 15:30 Objective Labs 12/22/24 04:35 12/22/24 04:35 Labs: Laboratory Results - last 24 hr 12/22/24 04:35 WBC 3.5 L RBC 3.04 L Hgb 10.7 L Hct 29.8 L MCV 98 MCH 35.2 H MCHC 35.9 RDW Std Deviation 64.0 H Plt Count 85 L Neut % (Auto) 70 Lymph % (Auto) 14 [place] % (Auto) 11 Eos % (Auto) 2 Baso % (Auto) 1 Neut # (Auto) 2.5 Lymph # (Auto) 0.5 L [place] # (Auto) 0.4 Eos # (Auto) 0.1 Baso # (Auto) 0.1 Immature Gran # (Auto) 0.04 H Absolute Nucleated RBC 0.00 Immature Gran % 1 H Nucleated RBC % 0 Sodium 135 L Potassium 3.0 L Chloride 100 Carbon Dioxide 25.8 Anion Gap 9 BUN 12 Creatinine 1.2 Estim Creat Clear Calc 95.9 eGFR > 60 BUN/Creatinine Ratio 10 L Glucose 84 Calculated Osmolality 268 L Calcium 7.8 L Corrected Calcium 8.7 Total Bilirubin 18.5 H* D AST 128 H ALT 57 H Alkaline Phosphatase 120 H Total Protein 6.4 Albumin 2.9 L Globulin 3.5 Albumin/Globulin Ratio 0.8 L Impressions Impression: Esophageal ulceration 1+ esophageal varices Advanced liver disease with portal hypertension and pedal edema Plan As under HPI Assessment & Plan A&P Narrative # Abnormal liver functions is most likely due to chronic liver disease caused by moderate consumption of alcohol leading to hepatosplenomegaly and fatty infiltration of the liver along with portal hypertension and ascites However other causes of chronic active hepatitis should be ruled out And I have ordered a complete workup Other medical problems include Cellulitis lower extremities patient already on Zosyn and vancomycin Cholelithiasis with possibility of cholecystitis Thank you very much for the opportunity to participate in care of this patient Time Spent With Patient Time: Total time spent is greater than 50% in coordination of care (as documented) at patient's floor/unit and/or counseling patient:
[2024-12-25 06:49] LABS: ANA Screen, IFA POSITIVE (NEGATIVE); Alpha-1-Antitrypsin* 212 mg/dL (83-199); Ceruloplasmin* 24 mg/dL (14-30); Copper* 103 mcg/dL (70-175); Mitochondrial Ab NEGATIVE (NEGATIVE)
== END 2024-12-22 13:17 | disposition home or self-care (01) | DRG 383 ==
LOC: SERX 11:18 → SERHOLD 21:45 → S3SX 12-18 06:08 → SERHOLD 12-18 06:08
PROVIDERS: Nurse Practitioner Family; Specialist; Student in an Organized Health Care Education/Training Program; Admitting Provider Student in an Organized Health Care Education/Training Program; Emergency Provider Emergency Medicine; PCP Physician Assistant Medical; Visit Provider Internal Medicine
PROC: 0DJ08ZZ Inspection of Upper Intestinal Tract, Via Natural or Artificial Opening Endoscopic (ICD-10-PCS; CPT 43239; principal; 2024-12-20 14:30)
DX: L03.115 Cellulitis of right lower limb (principal); K70.31 Alcoholic cirrhosis of liver with ascites; L03.116 Cellulitis of left lower limb; K80.00 Calculus of gallbladder with acute cholecystitis without obstruction; I85.10 Secondary esophageal varices without bleeding; D69.6 Thrombocytopenia, unspecified; E87.6 Hypokalemia; K76.6 Portal hypertension; E88.09 Other disorders of plasma-protein metabolism, not elsewhere classified; K76.0 Fatty (change of) liver, not elsewhere classified; F10.10 Alcohol abuse, uncomplicated; K22.10 Ulcer of esophagus without bleeding; K29.70 Gastritis, unspecified, without bleeding; K31.89 Other diseases of stomach and duodenum; I10 Essential (primary) hypertension; E66.01 Morbid (severe) obesity due to excess calories; Z68.41 Body mass index [BMI] 40.0-44.9, adult; L98.9 Disorder of the skin and subcutaneous tissue, unspecified; D63.8 Anemia in other chronic diseases classified elsewhere; Z79.899 Other long term (current) drug therapy; Z53.29 Procedure and treatment not carried out because of patient's decision for other reasons
CPT/HCPCS: 36415; 73590; 76705; 80053; 80061; 80069; 80074; 80202; 80307; 81001; 82103; 82105; 82248; 82390; 82525; 83036; 83540; 83550; 83605; 83735; 83880; 84100; 84132; 84145; 84484; 85025; 85610; 85652; 85730; 86038; 86140; 86255; 87040; 87081; 93005; 93970; 96365; 96366; 96367; 96372; 99285; A4217; J1171; J1200; J1643; J2250; J2543; J3010; J3370; J3411; J3475; J3480; J7040; J7999; S8037; 74181; A9270